=== PATIENT | male | born 1935 | race Hispanic/Latino ===

== ENCOUNTER → 2017-09-16 | Day surgery (SDC) | payer MEDICARE, MEDICAID ==
[~2017-09-16] MED LIST: AMLODIPINE-BEN1 EAC2 PO; ASPIR-LOW81 MG PO; CEFAZOLIN SOD 1 GM VIAL ONE; DEXAMETHASONE SOD PHOS INJ 4 MG/ML VIAL ONE; DOXYCYCLINE HY100 M3 PO; EPHEDRINE SULFATE INJ 50 MG/10 ML SYR ONE; FENOFIBRATE145 MG PO; FENTANYL CITRATE/PF 100MCG/2 ML INJ ONE; FINASTERIDE5 MG PO; FUROSEMIDE20 MG PO; GABAPENTIN300 MG PO; HUMALOG100 UNITS/ SQ; HYDRALAZINE HCL25 MG PO; INSULIN SC; IOPAMIDOL 300MG/ML 50ML INFUS..BTL IV ONE; KLOR-CON 1010 MEQ PO; LIDOCAINE HCL 2% LOCAL INJ 5 ML SDV VIAL INJ ONE; LOSARTAN POTAS100 MG PO; LOSARTAN-HCTZ1 EAC1 PO; ONDANSETRON HCL INJ 2 MG/ML VIAL ONE; PLAVIX75 MG PO; PROPOFOL IV EMULSION 10 MG/ML 20 ML VIAL ONE; SEVOFLURANE INHAL SOLN 250 ML PEN BTL ONE; SIMVASTATIN20 MG PO; TAMSULOSIN HCL0.4 MG PO; TRILIPIX135 MG PO; ULTRAM 50MG50 MG PO
[2017-09-16 09:31] LABS: BASOPHILS # (AUTO) 0.1 (0.0-0.1); BASOPHILS % 0.6 % (0.0-1.0); EOSINOPHILS # (AUTO) 0.3 (0.0-0.4); EOSINOPHILS % 2.8 % (0.0-6.0); HEMOGLOBIN 14.2 g/dL (14.0-18.0); LYMPHOCYTES # (AUTO) 2.1 (1.0-3.2); LYMPHOCYTES % 23.8 % (18.0-39.1); MEAN CORPUSCULAR HEMOGLOBIN 28.9 pg (28-32); MEAN CORPUSCULAR HGB CONC 32.3 g/dL (31-35); MEAN CORPUSCULAR VOLUME 89.6 fL (81-99); MONOCYTES # (AUTO) 0.6 (0.2-0.8); MONOCYTES % 6.3 % (4.4-11.3); NEUTROPHILS # (AUTO) 5.8 (2.1-6.9); NEUTROPHILS % 65.9 % (38.7-80.0); PLATELET COUNT 194 x10e3/uL (140-360); RED BLOOD COUNT 4.91 x10e6/uL (4.3-5.7); RED CELL DISTRIBUTION WIDTH 14.5 % (11.7-14.4)
[2017-09-16 09:46] LABS: ANION GAP 16.8 mmol/L (8-16); CREATININE, SERUM 1.35 mg/dL (0.72-1.25); POTASSIUM 4.8 mmol/L (3.5-5.1)
--- NOTE | 2017-09-16 17:20 | Operative Report ---
DATE OF PROCEDURE: September 16, 2017 PREOPERATIVE DIAGNOSES: 1. Urethral stricture. 2. Urinary incontinence. 3. Severely contracted bladder. 4. Hematuria. POSTOPERATIVE DIAGNOSES: 1. Urethral stricture. 2. Urinary incontinence. 3. Severely contracted bladder. 4. Hematuria. 5. Severe urethral stricture, [place] of the urethra and contracted bladder with very small volume. OPERATIONS PERFORMED: 1. Retrograde urethrogram under fluoroscopic control. 2. Cystogram. 3. Urethral dilation. 4. Cystoscopy and placement of Cortez. BOAT REPAIRER: None. ANESTHESIA: General. CLINICAL INDICATION NOTE: This is a 81-year-old patient that has urinary incontinence and significant frequency of urination. The patient was noticed in the past to have a very large prostate. Patient was brought for assessment. A stricture was seen in cystoscopy in the office. DESCRIPTION OF PROCEDURE AND FINDINGS: After proper level of anesthesia was achieved, the patient was placed in lithotomy position and prepped and draped in sterile fashion. Urethra inspected. Retrograde urethrogram was done, demonstrating stricture and quite a long urethra up to the bladder. Following this, a cystogram was done. Following the x-ray, a cystoscopy was done. The scope could not reach the bladder due to the long prostate. Therefore, a wire was kept in place and urethra was dilated to 28-Kyrgyz. The flexible cystoscopy was then done. It was possible to identify a urethral mo[place]own which appeared to be old and under the prostate. The bladder itself was very small capacity. The guidewire was kept in place and a 22, 10-mL Cortez was inserted and inflated with 15 mL of water. The Cortez was connected to a drainage bag. Patient was discharged to home after recovering in recovery room. He will be followed as outpatient. Job#: [id number] EV
== END | disposition home or self-care (01) ==
LOC: OR 07:51
PROVIDERS: ATTEND Urology
DX: N35.9 Urethral stricture, unspecified (principal); N36.5 Urethral false passage; R32 Unspecified urinary incontinence; N32.89 Other specified disorders of bladder; I10 Essential (primary) hypertension; I25.810 Atherosclerosis of coronary artery bypass graft(s) without angina pectoris; I25.2 Old myocardial infarction; E11.9 Type 2 diabetes mellitus without complications; E78.5 Hyperlipidemia, unspecified; Z79.82 Long term (current) use of aspirin; Z79.02 Long term (current) use of antithrombotics/antiplatelets; Z79.4 Long term (current) use of insulin; Z95.1 Presence of aortocoronary bypass graft; Z86.73 Personal history of transient ischemic attack (TIA), and cerebral infarction without residual deficits
CPT/HCPCS: 36415; 52281; 74450; 80048; 82948; 85025; 93005; C1758; J0690; J1100; J2001; J2405; Q9967

== ENCOUNTER → 2017-12-09 | Outpatient (CLI) | payer MEDICARE ==
[~2017-12-09] MED LIST changes: +BASAGLAR KWIKPEN SQ; +BELLADONNA/OPIUM 60 MG SUPP PR ONE; -CEFAZOLIN SOD 1 GM VIAL ONE; +CEFAZOLIN SOD 2 GM/D5W 50ML 50 ML IV ONE; -DEXAMETHASONE SOD PHOS INJ 4 MG/ML VIAL ONE; +DOXYCYCLINE HY100 MG PO; -EPHEDRINE SULFATE INJ 50 MG/10 ML SYR ONE; -FENTANYL CITRATE/PF 100MCG/2 ML INJ ONE; -IOPAMIDOL 300MG/ML 50ML INFUS..BTL IV ONE; +IOPAMIDOL 610MG/1ML 300 MG/ML VIAL IV ONE; -LIDOCAINE HCL 2% LOCAL INJ 5 ML SDV VIAL INJ ONE; +LINZESS PO; +MYRBETRIQ25 MG PO; +NOVOLOG MI100 UNIT/1; +NOVOLOG MI100 UNIT/1 SQ; -ONDANSETRON HCL INJ 2 MG/ML VIAL ONE; -PROPOFOL IV EMULSION 10 MG/ML 20 ML VIAL ONE; -SEVOFLURANE INHAL SOLN 250 ML PEN BTL ONE; +ULTRACET TABLE1 EACH PO; +VESICARE5 MG PO
--- OUTSIDE RECORDS SUMMARY | 2017-12-09 10:02 | XMS REPORT ---
Author Author [facility] Address Unknown Phone Unavailable Care Team Providers Care Cisco Consultant Name Role Phone Unavailable Unavailable Payers Payer Name Policy Type Policy Number Effective Date Expiration Date Problems This patient has no known problems. Allergies, Adverse Reactions, Alerts Allergy Name Allergy Type Status Severity Reaction(s) Onset Date Inactive Date Treating Clinician Comments No Known Allergies DA Active U 2017-08-17 00:00:00 Medications This patient has no known medications.
[2017-12-09 10:56] LABS: BASOPHILS % 0.5 % (0.0-1.0); EOSINOPHILS # (AUTO) 0.2 (0.0-0.4); EOSINOPHILS % 3.1 % (0.0-6.0); HEMATOCRIT 43.1 % (38.2-49.6); HEMOGLOBIN 13.8 g/dL (14.0-18.0); LYMPHOCYTES # (AUTO) 1.7 (1.0-3.2); LYMPHOCYTES % 22.8 % (18.0-39.1); MEAN CORPUSCULAR HEMOGLOBIN 29.1 pg (28-32); MEAN CORPUSCULAR VOLUME 90.7 fL (81-99); MONOCYTES # (AUTO) 0.4 (0.2-0.8); MONOCYTES % 5.9 % (4.4-11.3); NEUTROPHILS # (AUTO) 4.9 (2.1-6.9); PLATELET COUNT 217 x10e3/uL (140-360); RED BLOOD COUNT 4.75 x10e6/uL (4.3-5.7); RED CELL DISTRIBUTION WIDTH 14.7 % (11.7-14.4)
[2017-12-09 11:21] LABS: ANION GAP 13.9 mmol/L (8-16); CALCIUM 9.9 mg/dL (8.4-10.2); CREATININE, SERUM 1.75 mg/dL (0.72-1.25); POTASSIUM 3.9 mmol/L (3.5-5.1)
--- NOTE | 2017-12-09 12:06 | Diagnostic Imaging Report ---
EXAMINATION: CHEST 2 VIEWS INDICATION: Preop for gastric surgery. COMPARISON: None FINDINGS: TUBES and LINES: Sternal wires are seen LUNGS: Lungs are well inflated. Lungs are clear. There is no evidence of pneumonia or pulmonary edema. PLEURA: No pleural effusion or pneumothorax. Nonspecific elevation of the left hemidiaphragm. HEART AND MEDIASTINUM: The heart is enlarged. The pulmonary vasculature is within normal limits. BONES AND SOFT TISSUES: No acute osseous lesion. Soft tissues are unremarkable. UPPER ABDOMEN: No free air under the diaphragm. IMPRESSION: Cardiomegaly without consolidative pneumonia, pleural effusion or pneumothorax. Signed by: Dr. Tuan Pritchett M.D. on 12/09/2017 12:03 PM
== END ==
LOC: RAD 10:00 → OR 10:00 → EDSTATUS 12:00
PROVIDERS: ATTEND Urology
DX: Z01.818 Encounter for other preprocedural examination (principal); Z53.8 Procedure and treatment not carried out for other reasons; N40.1 Benign prostatic hyperplasia with lower urinary tract symptoms
CPT/HCPCS: 36415; 71046; 80048; 82948; 85025; J0690

== ENCOUNTER 2017-12-23 08:46 | Inpatient (IN) | payer MEDICARE ==
[~2017-12-23] VITALS: Ht 172.7 cm; Wt 132.2 kg
[~2017-12-23 08:46] MED LIST changes: -BELLADONNA/OPIUM 60 MG SUPP PR ONE; -CEFAZOLIN SOD 2 GM/D5W 50ML 50 ML IV ONE; -IOPAMIDOL 610MG/1ML 300 MG/ML VIAL IV ONE
[2017-12-23] MEDS ORDERED: CEFAZOLIN SOD 2 GM/D5W 50ML 50 ML IV ONE (09:32)
[2017-12-23 10:00] LABS: BASOPHILS # (AUTO) 0.1 (0.0-0.1); BASOPHILS % 0.6 % (0.0-1.0); EOSINOPHILS # (AUTO) 0.3 (0.0-0.4); EOSINOPHILS % 2.8 % (0.0-6.0); HEMATOCRIT 44.8 % (38.2-49.6); HEMOGLOBIN 14.6 g/dL (14.0-18.0); LYMPHOCYTES # (AUTO) 2.1 (1.0-3.2); LYMPHOCYTES % 22.2 % (18.0-39.1); MEAN CORPUSCULAR HEMOGLOBIN 29.1 pg (28-32); MEAN CORPUSCULAR HGB CONC 32.6 g/dL (31-35); MEAN CORPUSCULAR VOLUME 89.4 fL (81-99); MONOCYTES # (AUTO) 0.6 (0.2-0.8); MONOCYTES % 5.7 % (4.4-11.3); NEUTROPHILS # (AUTO) 6.5 (2.1-6.9); NEUTROPHILS % 67.8 % (38.7-80.0); PLATELET COUNT 239 x10e3/uL (140-360); RED BLOOD COUNT 5.01 x10e6/uL (4.3-5.7); RED CELL DISTRIBUTION WIDTH 14.6 % (11.7-14.4)
[2017-12-23] MEDS ORDERED: BELLADONNA/OPIUM 60 MG SUPP PR ONE (10:05)
[2017-12-23] MEDS ORDERED: IOPAMIDOL 610MG/1ML 300 MG/ML VIAL IV ONE (10:06)
[2017-12-23 10:18] LABS: CREATININE, SERUM 1.43 mg/dL (0.72-1.25)
--- NOTE | 2017-12-23 10:19 | Diagnostic Imaging Report ---
PROCEDURE: Frontal and lateral views of the chest. COMPARISON: None. INDICATIONS: PRE OPERATIVE CHEST X-RAY FINDINGS: Lines/tubes: None. Lungs: The lungs are well inflated. There is no evidence of consolidation or pulmonary edema. Pleura: There is no pleural effusion or pneumothorax. Eventration of the left hemidiaphragm. Heart and mediastinum: Enlarged cardiac silhouette. Minimal central venous congestion. Bones: No acute bony abnormality. Degenerative changes in the thoracic spine. Midline sternotomy wires. IMPRESSION: 1. enlarged cardiac silhouette. Minimal central venous congestion. No consolidation or effusion. Cale Garner M.D. Dictated by: Cale Garner M.D. on 12/23/2017 at 10:28 Electronically approved by: Cale Garner M.D. on 12/23/2017 at 10:28
--- NOTE | 2017-12-23 13:05 | NUR ---
REC'D PT FROM PACU VIA STRETCHER; PT ABLE TO ASSIST WITH TRANSFER WITHOUT DIFFICULTY.
[2017-12-23 13:20] VITALS: BP 166/77
[2017-12-23 14:09] VITALS: BP 166/77
[2017-12-23] MEDS ORDERED: FUROSEMIDE 20 MG TAB PO SCH (14:15)
[2017-12-23] MEDS ORDERED: NON-FORMULARY MEDICATION (Insuln Asp Prt/Insulin Aspart (Novolog Mix 70-30 Flexpen Syrn) 2 SQ SCH (14:15)
[2017-12-23] MEDS ORDERED: TRAMADOL HCL 50 MG TAB PO SCH (14:15)
--- NOTE | 2017-12-23 14:30 | NUR ---
Patient received from PACU. Respirations even and unlabored, no distress noted at this time. Family at bedside. Bed locked and in low position and call light within reach.
[2017-12-23] MEDS: HYDRALAZINE HCL 25 MG TAB PO SCH ×2 (16:00→21:00)
[2017-12-23] MEDS: FUROSEMIDE 20 MG TAB PO SCH (16:00)
[2017-12-23 16:53] VITALS: BP 140/73
[2017-12-23] MEDS: INSULIN ASPART 70/30 100 UNITS/ML VIAL SC SCH (17:27)
[2017-12-23] MEDS ORDERED: FENTANYL CITRATE/PF 100MCG/2 ML INJ ONE (19:23)
[2017-12-23] MEDS ORDERED: MIDAZOLAM HCL 2 MG/2 ML VIAL ONE (19:23)
[2017-12-23] MEDS ORDERED: ONDANSETRON HCL INJ 2 MG/ML VIAL ONE (19:48)
[2017-12-23] MEDS ORDERED: EPHEDRINE SULFATE INJ 50 MG/10 ML SYR ONE (19:48)
[2017-12-23] MEDS ORDERED: LIDOCAINE HCL 2% LOCAL INJ 5 ML SDV VIAL INJ ONE (19:48)
[2017-12-23] MEDS ORDERED: PROPOFOL IV EMULSION 10 MG/ML 20 ML VIAL ONE (19:48)
[2017-12-23] MEDS ORDERED: DEXAMETHASONE SOD PHOS INJ 4 MG/ML VIAL ONE (19:48)
[2017-12-23] MEDS ORDERED: SEVOFLURANE INHAL SOLN 250 ML PEN BTL ONE (19:48)
[2017-12-23 20:00] VITALS: BP 143/64
--- NOTE | 2017-12-23 20:20 | Operative Report ---
DATE OF PROCEDURE: December 23, 2017 SERVICE: Urology. PREOPERATIVE DIAGNOSES 1. BPH with obstruction. 2. Microhematuria. 3. Obesity. POSTOPERATIVE DIAGNOSES 1. BPH with obstruction. 2. Microhematuria. 3. Obesity. 4. in the prostatic urethra and obstructing prostate. OPERATIONS PERFORMED 1. Cystoscopy and bilateral retrograde pyelograms under fluoroscopic control. This was done with different instruments with assessment of microhematuria. 2. Interpretation of x-ray, radiologist not present. 3. Supervision of fluoroscopy, radiologist not present. 4. Transurethral resection of the prostate. ELECTROMECHANICAL ASSEMBLY TECHNICIAN: None. ANESTHESIA: General. CLINICAL INDICATION NOTE: This is an 82-year-old patient that has symptoms of prostatism in remote past. He had some procedures on the prostate. He was assessed in the office. Prostatic area regrowth of tissue was blocking mostly on the right side. He had also undermining on the bladder neck within the prostatic urethra. Patient is significantly obese and the prostate is very high rising. Patient was brought for assessment of the upper tracts and resection of obstructing tissue. Procedure was discussed with the patient. Potential benefits and complications discussed, explained, and accepted. DESCRIPTION OF PROCEDURE AND FINDINGS: After proper level of anesthesia was achieved, the patient was placed in lithotomy position, prepped and draped in usual sterile fashion. Urethra inspected and distal urethra is unremarkable. In the prostatic urethra, there are some with some undermining off the bladder neck. Prostatic tissue significantly blocking the outlet. Bladder is quite trabeculated. Bilateral retrograde pyelograms were done under fluoroscopic control. No intrinsic lesions were identified on either side. The drainage was prompt. Following this, the resectoscope was inserted and systematic resection with a plasma instrument was done. All the blocking tissue was resected. All the prostatic chips were removed and sent to pathology. Any visible bleeding points were carefully coagulated. Following this, a 22-Portuguese 3-way Cortez catheter with 30-mL balloon was inserted after checking significant and good flow of water upon compression of the bladder. The Cortez was connected to continuous irrigation with normal saline and was transferred in satisfactory condition to recovery room. After that, bladder looked quite small. A B and O suppository was placed. Job#: [id number] CQ
[2017-12-23] MEDS: GABAPENTIN 300 MG CAP PO SCH (20:21)
[2017-12-23] MEDS: SOLIFENACIN SUCCINATE 5 MG TAB PO SCH (20:21)
[2017-12-23] MEDS: SIMVASTATIN 20 MG TAB PO SCH (20:21)
[2017-12-24] VITALS (7 sets, daily range): BP systolic 142–159; BP diastolic 63–72
[2017-12-24] MEDS: NON-FORMULARY MEDICATION (Mirabegron (Myrbetriq) 25 MG) PO SCH (08:29)
[2017-12-24] MEDS: FINASTERIDE 5 MG TAB PO SCH (08:49)
[2017-12-24] MEDS: TAMSULOSIN HCL 0.4 MG CAP PO SCH (08:49)
[2017-12-24] MEDS: HYDRALAZINE HCL 25 MG TAB PO SCH ×3 (08:50→20:54)
[2017-12-24] MEDS: FENOFIBRATE 145 MG TAB PO SCH (08:50)
[2017-12-24] MEDS: POTASSIUM CHLORIDE 10MEQ EA PO SCH (08:50)
[2017-12-24] MEDS ORDERED: NON-FORMULARY MEDICATION (Potassium Chloride (Klor-Con 10) 10 MEQ) PO SCH (09:00)
[2017-12-24] MEDS: INSULIN ASPART 70/30 100 UNITS/ML VIAL SC SCH ×2 (12:04→17:12)
--- NOTE | 2017-12-24 12:31 | NUR ---
EDUCATED ABOUT CASTANEDA, SIGNED, FILED IN CHART, WITH COPY LEFT WITH FAMILY AT BEDSIDE. SPOKE WITH PATIENT AND FAMILY ABOUT TRANSITION OF CARE AND PREFORMED BRIEF SOCIAL ASSESSMENT TO FIND; MALE LIVES IN OWN HOME WITH ASHOK [phone]. HAS A WALKER HE USES AT HOME. PCP IS [facility]. ALERT AND ORIENTED X 4. GET PT AND HOME HEALTH ALREADY. SPEAKS DANISH AND WITH ASSISTANCE FROM NURSE RICKY WAS ABLE TO COMPLETE ASSESSMENT. PLAN IS TO RETURN HOME WITH NO BARRIERS TO DISCHARGE.
[2017-12-24] MEDS ORDERED: CEFAZOLIN SOD 1 GM in WATER STERILE 10ML VIAL 10 ML IV ONE (12:45)
[2017-12-24] MEDS ORDERED: CEFAZOLIN SOD 1 GM VIAL IV SCH (14:00)
--- NOTE | 2017-12-24 16:09 | NUR ---
patients daughter provided education on hicks catheter and changing from bedside bag to leg bag, return demonstration provided and verbalized understanding
--- NOTE | 2017-12-24 16:09 | Discharge Summary ---
PRIMARY CARE PHYSICIAN: Dr. Cale Camara. CONSULTANTS: Dr. Samreen Sierra. FINAL DIAGNOSES: 1. Status post transurethral resection of the prostate and medical aftercare of transurethral resection of the prostate. 2. Enlarged prostate with recurrent urinary retention. SUMMARY: [id number] male with now status post TURP procedures. The patient is stable. He has a Cortez catheter in place. No gross hematuria. He has been cleared for discharge home today. He will follow up with Dr. Sierra next week for Cortez care. The patient will go home with pain medication and antibiotics. The patient is otherwise stable. Discharged home today. Resume home medication. Job#: [id number] EV
--- NOTE | 2017-12-24 16:15 | NUR ---
informed dr keith of elevated temperature 101.7, new orders received and hold discharge
[2017-12-24] MEDS: TRAMADOL HCL 50 MG TAB PO PRN (16:57)
[2017-12-24] MEDS: ACETAMINOPHEN 325 MG TAB PO PRN (16:57)
[2017-12-24 17:01] LABS: ANION GAP 19.2 mmol/L (8-16); CALCIUM 9.5 mg/dL (8.4-10.2); CREATININE, SERUM 1.74 mg/dL (0.72-1.25); POTASSIUM 4.2 mmol/L (3.5-5.1)
[2017-12-24] MEDS: CEFTRIAXONE SOD 1 GM VIAL IV SCH (17:11)
[2017-12-24 17:56] LABS: BASOPHILS % 0.4 % (0.0-1.0); EOSINOPHILS # (AUTO) 0.1 (0.0-0.4); EOSINOPHILS % 1.1 % (0.0-6.0); HEMATOCRIT 43.5 % (38.2-49.6); HEMOGLOBIN 13.8 g/dL (14.0-18.0); LYMPHOCYTES # (AUTO) 0.9 (1.0-3.2); LYMPHOCYTES % 7.7 % (18.0-39.1); MEAN CORPUSCULAR HEMOGLOBIN 29.2 pg (28-32); MEAN CORPUSCULAR HGB CONC 31.7 g/dL (31-35); MONOCYTES # (AUTO) 0.9 (0.2-0.8); MONOCYTES % 7.7 % (4.4-11.3); NEUTROPHILS % 82.4 % (38.7-80.0); PLATELET COUNT 187 x10e3/uL (140-360); RED BLOOD COUNT 4.73 x10e6/uL (4.3-5.7); RED CELL DISTRIBUTION WIDTH 14.8 % (11.7-14.4)
--- NOTE | 2017-12-24 19:20 | NUR ---
Report received and walking rounds complete. Pt resting in bed watching tv and in no apparent distress. at bedside. Cortez in place. All safety measures ensured, bed alarm on, and pt call gonzalez near. Pt encouraged to use call gonzalez for assistance.
[2017-12-24] MEDS: SIMVASTATIN 20 MG TAB PO SCH (20:54)
[2017-12-24] MEDS: SOLIFENACIN SUCCINATE 5 MG TAB PO SCH (20:54)
[2017-12-24] MEDS: GABAPENTIN 300 MG CAP PO SCH (20:54)
[2017-12-24] MEDS: ACETAMINOPHEN/CODEINE 300MG - 30MG TAB PO PRN (21:12)
--- NOTE | 2017-12-24 21:13 | NUR ---
Pt temp 99.3. Pt asymptomatic. Pt c/o pain as well. Tylenol #3 given. Pt 02 sats 91%, pt put on 2L NC. Will continue to monitor pt and recheck vitals.
--- NOTE | 2017-12-24 21:15 | NUR ---
UA collected and sent to lab
[2017-12-24 21:20] LABS: CLARITY,URINE CLOUDY (CLEAR); COLOR,URINE AMBER (YELLOW); KETONES,URINE TRACE (NEGATIVE); LEUKOCYTE ESTERASE ,URINE 1+ (NEGATIVE); NITRITE,URINE POSITIVE (NEGATIVE); PROTEIN,URINE DIPSTICK 2+ (NEGATIVE); URINE UROBILINOGEN 1 mg/dL (0.2 - 1)
[2017-12-24 21:21] LABS: BILIRUBIN,URINE 1+ (NEGATIVE)
[2017-12-24 21:26] LABS: AMORPHOUS SEDIMENT,URINE MODERATE (FEW); BACTERIA,URINE MANY /HPF; RBC,URINE 21-50 /HPF (0-5)
[2017-12-25] VITALS (8 sets, daily range): BP systolic 135–180; BP diastolic 60–84
[2017-12-25] MEDS: ACETAMINOPHEN 325 MG TAB PO PRN (00:20)
--- NOTE | 2017-12-25 00:21 | NUR ---
Vitals taken, pt temp 101.1. Pt asymptomatic and no complaints. Tylenol 650mg given.
--- NOTE | 2017-12-25 00:29 | NUR ---
Pt transferred to room 210. Pt A&O, no complaints and in no apparent distress.
--- NOTE | 2017-12-25 00:36 | NUR ---
PT ARRIVING TO UNIT VIA HOSPITAL BED, AT BEDSIDE, PT ALERT, NO DISTRESS NOTED, NO NEEDS VOICED
[2017-12-25] MEDS: CEFTRIAXONE SOD 1 GM VIAL IV SCH ×2 (03:09→16:53)
[2017-12-25] MEDS: HYDRALAZINE HCL 25 MG TAB PO SCH ×3 (05:29→20:22)
--- NOTE | 2017-12-25 05:31 | NUR ---
PT RESTING IN BED ALERT AND ORIENTED,NO DISTRESS NOTED, AT BEDSIDE, O2 NC WORN, CALL LIGHT IN REACH, INSTRUCTED TO CALL WITH NEEDS
[2017-12-25] MEDS: POTASSIUM CHLORIDE 10MEQ EA PO SCH (08:18)
[2017-12-25] MEDS: TAMSULOSIN HCL 0.4 MG CAP PO SCH (08:18)
[2017-12-25] MEDS: FINASTERIDE 5 MG TAB PO SCH (08:19)
[2017-12-25] MEDS: FENOFIBRATE 145 MG TAB PO SCH (08:19)
[2017-12-25] MEDS: NON-FORMULARY MEDICATION (Mirabegron (Myrbetriq) 25 MG) PO SCH (08:29)
[2017-12-25] MEDS: ACETAMINOPHEN/CODEINE 300MG - 30MG TAB PO PRN ×2 (08:43→20:00)
--- NOTE | 2017-12-25 11:57 | NUR ---
Pt changed to inpatient status. IMM letter delivered and explained to pt with CONNIE Lynn. Pt verbalized understanding. Signed copy placed in chart. Croatian copy given to pt.
[2017-12-25] MEDS: INSULIN ASPART 70/30 100 UNITS/ML VIAL SC SCH ×2 (12:03→17:12)
--- NOTE | 2017-12-25 19:10 | NUR ---
REPORT RECEIVED FROM OFF GOING NURSE, PT RESTING IN BED ALERT AND ORIENTED, NO DISTRESS NOTED, DENIES NEEDS, INDWELLING PARRISH IN PLACE AND DRAINING TO BEDSIDE DRAINAGE, CONDON COLORED URINE PREVIOUSLY NOTED, CALL LIGHT IN REACH, AT BEDSIDE, INSTRUCTED TO CALL WITH NEEDS, BED LOCKED AND LOW
--- NOTE | 2017-12-25 20:00 | NUR ---
PRN GIVEN FOR PAIN
[2017-12-25] MEDS: GABAPENTIN 300 MG CAP PO SCH (20:26)
[2017-12-25] MEDS: SIMVASTATIN 20 MG TAB PO SCH (20:26)
[2017-12-25] MEDS: SOLIFENACIN SUCCINATE 5 MG TAB PO SCH (20:26)
[2017-12-25] MEDS: TRAMADOL HCL 50 MG TAB PO PRN (23:22)
--- NOTE | 2017-12-25 23:23 | NUR ---
PRN GIVEN FOR PAIN
[2017-12-26] VITALS (8 sets, daily range): BP systolic 153–193; BP diastolic 67–84
[2017-12-26] MEDS: ACETAMINOPHEN/CODEINE 300MG - 30MG TAB PO PRN ×3 (04:15→18:22)
--- NOTE | 2017-12-26 04:15 | NUR ---
PRN GIVEN FOR PAIN
[2017-12-26] MEDS: CEFTRIAXONE SOD 1 GM VIAL IV SCH ×2 (04:30→16:29)
[2017-12-26 04:52] LABS: BASOPHILS # (AUTO) 0.1 (0.0-0.1); BASOPHILS % 0.6 % (0.0-1.0); EOSINOPHILS # (AUTO) 0.3 (0.0-0.4); EOSINOPHILS % 2.8 % (0.0-6.0); HEMOGLOBIN 13.1 g/dL (14.0-18.0); LYMPHOCYTES # (AUTO) 1.4 (1.0-3.2); LYMPHOCYTES % 13.4 % (18.0-39.1); MEAN CORPUSCULAR HEMOGLOBIN 28.9 pg (28-32); MEAN CORPUSCULAR VOLUME 90.3 fL (81-99); MONOCYTES # (AUTO) 0.8 (0.2-0.8); MONOCYTES % 7.4 % (4.4-11.3); NEUTROPHILS % 75.2 % (38.7-80.0); PLATELET COUNT 176 x10e3/uL (140-360); RED BLOOD COUNT 4.54 x10e6/uL (4.3-5.7); RED CELL DISTRIBUTION WIDTH 14.6 % (11.7-14.4)
--- NOTE | 2017-12-26 04:59 | NUR ---
CRITICAL LABS CALLED IN, ORDERS NOTED FOR PLTs, MADE AWARE OF PTs HBG OF 8.0 ON 12/25
[2017-12-26 05:12] LABS: ANION GAP 16.1 mmol/L (8-16); CALCIUM 8.7 mg/dL (8.4-10.2); CREATININE, SERUM 1.54 mg/dL (0.72-1.25); POTASSIUM 4.1 mmol/L (3.5-5.1)
[2017-12-26] MEDS: HYDRALAZINE HCL 25 MG TAB PO SCH ×3 (06:06→20:42)
[2017-12-26] MEDS: NON-FORMULARY MEDICATION (Mirabegron (Myrbetriq) 25 MG) PO SCH (09:00)
[2017-12-26] MEDS: FINASTERIDE 5 MG TAB PO SCH (09:20)
[2017-12-26] MEDS: TAMSULOSIN HCL 0.4 MG CAP PO SCH (09:20)
[2017-12-26] MEDS: FENOFIBRATE 145 MG TAB PO SCH (09:20)
[2017-12-26] MEDS: POTASSIUM CHLORIDE 10MEQ EA PO SCH (09:21)
[2017-12-26] MEDS: INSULIN ASPART 70/30 100 UNITS/ML VIAL SC SCH ×2 (13:05→16:46)
[2017-12-26] MEDS: FUROSEMIDE 20 MG TAB PO SCH (16:29)
[2017-12-26] MEDS: SIMVASTATIN 20 MG TAB PO SCH (20:42)
[2017-12-26] MEDS: SOLIFENACIN SUCCINATE 5 MG TAB PO SCH (20:42)
[2017-12-26] MEDS: GABAPENTIN 300 MG CAP PO SCH (20:42)
[2017-12-27] VITALS (8 sets, daily range): BP systolic 132–194; BP diastolic 66–87
[2017-12-27] MEDS: TRAMADOL HCL 50 MG TAB PO PRN ×2 (00:27→21:32)
[2017-12-27] MEDS: ACETAMINOPHEN/CODEINE 300MG - 30MG TAB PO PRN ×2 (04:01→09:30)
[2017-12-27] MEDS: CEFTRIAXONE SOD 1 GM VIAL IV SCH (04:59)
--- NOTE | 2017-12-27 07:13 | NUR ---
REPORT GIVEN TO ONCOMING NURSE,WALKING ROUNDS MADE.PT RESTING IN BED WITH NO S/S OF DISTRESS.
--- NOTE | 2017-12-27 08:01 | NUR ---
Mateusz Sharif to report critical labs . Lab called critical labs for ESBL both positive in urine and blood.
--- NOTE | 2017-12-27 08:15 | NUR ---
Paged Dr. Samuel regarding ESBL growth in urine and blood cultures, and also new orders received from Dr. Sierra. Waiting oriental medicine practitioner back
[2017-12-27] MEDS ORDERED: PIPERACILLIN/TAZO 2.25 GM 50 ML IV SCH (08:45)
[2017-12-27] MEDS: NON-FORMULARY MEDICATION (Mirabegron (Myrbetriq) 25 MG) PO SCH (09:00)
[2017-12-27] MEDS: HYDRALAZINE HCL 25 MG TAB PO SCH ×3 (09:29→21:18)
[2017-12-27] MEDS: POTASSIUM CHLORIDE 10MEQ EA PO SCH (09:30)
[2017-12-27] MEDS: FENOFIBRATE 145 MG TAB PO SCH (09:30)
[2017-12-27] MEDS: FINASTERIDE 5 MG TAB PO SCH (09:30)
[2017-12-27] MEDS: TAMSULOSIN HCL 0.4 MG CAP PO SCH (09:30)
[2017-12-27] MEDS: MEROPENEM 500MG 500 MG in SODIUM CHLORIDE 0.9% 50ML 50 ML IV SCH ×3 (10:43→21:18)
--- NOTE | 2017-12-27 10:52 | NUR ---
Received order for SNF eval. Spoke to pt with CONNIE Huang. Informed pt that MD wants him to go to SNF for IV abx. He agrees to [facility]. Signed choice letter placed in chart. Copy to pt. Called and spoke with Maria Del Carmen with admissions at [facility]. She will send someone over to [facility] clinicals.
--- NOTE | 2017-12-27 11:23 | NUR ---
Kacey is here to [facility] for [facility].
[2017-12-27] MEDS: INSULIN ASPART 70/30 100 UNITS/ML VIAL SC SCH ×3 (12:00→17:00)
--- NOTE | 2017-12-27 12:25 | NUR ---
Pt has been accepted for [facility] [place] [address] [place] [address] Armani Stoddard Admin Benny Antoine Rm 223 RTF and PASSR in white envelope at nurses station. Copy of PASSR in chart. CONNIE Angeles notified.
--- NOTE | 2017-12-27 12:45 | NUR ---
Cortez removed per MD order. PICC line team is here to insert line. Patient has been educated on serial urine collection.
--- NOTE | 2017-12-27 13:43 | Diagnostic Imaging Report ---
EXAMINATION: CHEST XRAY LINE PLACEMENT INDICATION: Status post PICC. COMPARISON: None FINDINGS: TUBES and LINES: Interval placement of right sided PICC terminating at the expected position of the lower SVC. Sternal wires are seen LUNGS: Moderate lung volumes. There is no evidence of pneumonia or pulmonary edema. Non-specific mild elevation of the left hemidiaphragm is again noted. PLEURA: No pleural effusion or pneumothorax. HEART AND MEDIASTINUM: The heart is enlarged. The pulmonary vasculature is within normal limits. BONES AND SOFT TISSUES: No acute osseous lesion. Soft tissues are unremarkable. UPPER ABDOMEN: No free air under the diaphragm. IMPRESSION: Right sided PICC terminates at the expected location of the lower SVC in satisfactory position. No evidence of pneumothorax. Cardiomegaly. Signed by: Dr. Damian Davenport MD on 12/27/2017 1:40 PM
[2017-12-27] MEDS ORDERED: MEROPENEM 500MG 500 MG in SODIUM CHLORIDE 0.9% 50ML 50 ML IV SCH (14:00)
--- NOTE | 2017-12-27 17:01 | NUR ---
Cm spoke to pt and his at bedside with CONNIE Huang. IMM letter delivered and explained to pt and his . They verbalized understanding. Signed copy placed in chart. Filipino copy given to pt. Spoke to them regarding transfer to snf. answered all questions. CM information on board for any further questions/concerns.
--- NOTE | 2017-12-27 18:44 | Consultation ---
DATE OF CONSULTATION: December 27, 2017 REASON FOR CONSULTATION: UTI, sepsis with E. coli ESBL. HISTORY OF PRESENT ILLNESS: Patient who is an 82-year-old male who has history of benign prostate hypertrophy, history of obesity comes in with fever and chills. The patient was not able to urinate when he first came. The patient underwent cystoscopy, bilateral retrograde pyelogram under fluoroscopic control. The patient had the procedure on December 23. The patient afterwards was discharged home. He is coming back now with fever and chills. Blood cultures from December 24 showing Klebsiella ESBL. Urine cultures are showing the same. Patient is currently on meropenem. Infectious disease was consulted today to make recommendation in terms of antibiotic. Patient has a PICC line placement. He is currently up in the chair, comfortable. MEDICATION: He is currently on Flomax, Proscar, Tricor, Ultram, Zocor and meropenem. ALLERGIES: NKA. SOCIAL HISTORY: There is no smoking, no drug abuse or alcohol abuse. FAMILY HISTORY: Unremarkable. REVIEW OF SYSTEMS: GENERAL: At present time the patient is sitting up in chair, comfortable. He denies any review of systems. HEENT: Negative. PULMONARY: Negative. CARDIAC: Negative. : Negative. SKIN: There is no rash. PHYSICAL EXAMINATION: GENERAL: Alert, oriented, does not seem to be in any acute distress. VITAL SIGNS: Stable, currently afebrile. HEENT: Not icteric. NECK: Supple. CHEST: Clear bilaterally. HEART: S1 and S2, no murmur. ABDOMEN: Soft. Obese. No tenderness. No hepatosplenomegaly. EXTREMITIES: No edema. SKIN: No rash. IMPRESSION: Sepsis with E. coli ESBL, urinary tract infection, sepsis with Klebsiella pneumonia, ESBL. RECOMMENDATIONS: I agree with meropenem 500 IV q.6 h. Obtain blood cultures. will see if he can do outpatient IV antibiotic. Will check blood cultures. Weekly CBC, weekly chem panel. Will follow with you. Job#: [id number]
--- NOTE | 2017-12-27 19:15 | NUR ---
Received patient awake on bed, with at the bedside. Patient is for serial urine collection, patient verbalized understanding to call after void. Call light within reached, side rails up, bed locked and in low position. Will continue to monitor
[2017-12-27] MEDS: GABAPENTIN 300 MG CAP PO SCH (21:18)
[2017-12-27] MEDS: SOLIFENACIN SUCCINATE 5 MG TAB PO SCH (21:18)
[2017-12-27] MEDS: SIMVASTATIN 20 MG TAB PO SCH (21:18)
[2017-12-27] MEDS ORDERED: SODIUM CHLORIDE 0.9% 250ML 250 ML ONE (21:24)
[2017-12-28] VITALS (7 sets, daily range): BP systolic 142–181; BP diastolic 75–91
[2017-12-28] MEDS: ACETAMINOPHEN/CODEINE 300MG - 30MG TAB PO PRN ×3 (00:08→21:24)
[2017-12-28 04:52] LABS: BASOPHILS # (AUTO) 0.1 (0.0-0.1); BASOPHILS % 0.6 % (0.0-1.0); EOSINOPHILS # (AUTO) 0.5 (0.0-0.4); EOSINOPHILS % 5.3 % (0.0-6.0); HEMOGLOBIN 12.9 g/dL (14.0-18.0); LYMPHOCYTES # (AUTO) 1.7 (1.0-3.2); LYMPHOCYTES % 19.5 % (18.0-39.1); MEAN CORPUSCULAR HEMOGLOBIN 28.5 pg (28-32); MEAN CORPUSCULAR HGB CONC 31.5 g/dL (31-35); MEAN CORPUSCULAR VOLUME 90.7 fL (81-99); MONOCYTES # (AUTO) 0.6 (0.2-0.8); MONOCYTES % 7.3 % (4.4-11.3); NEUTROPHILS # (AUTO) 5.6 (2.1-6.9); NEUTROPHILS % 66.6 % (38.7-80.0); PLATELET COUNT 200 x10e3/uL (140-360); RED BLOOD COUNT 4.52 x10e6/uL (4.3-5.7); RED CELL DISTRIBUTION WIDTH 14.3 % (11.7-14.4)
[2017-12-28 04:58] LABS: ANION GAP 14.3 mmol/L (8-16); CALCIUM 9.9 mg/dL (8.4-10.2); CREATININE, SERUM 1.56 mg/dL (0.72-1.25); POTASSIUM 4.3 mmol/L (3.5-5.1)
[2017-12-28] MEDS: MEROPENEM 500MG 500 MG in SODIUM CHLORIDE 0.9% 50ML 50 ML IV SCH ×3 (05:25→21:24)
[2017-12-28] MEDS: NON-FORMULARY MEDICATION (Mirabegron (Myrbetriq) 25 MG) PO SCH (09:00)
[2017-12-28] MEDS: TAMSULOSIN HCL 0.4 MG CAP PO SCH (09:21)
[2017-12-28] MEDS: FINASTERIDE 5 MG TAB PO SCH (09:21)
[2017-12-28] MEDS: FENOFIBRATE 145 MG TAB PO SCH (09:21)
[2017-12-28] MEDS: HYDRALAZINE HCL 25 MG TAB PO SCH ×3 (09:21→21:24)
--- NOTE | 2017-12-28 10:14 | NUR ---
RM spoke with CONNIE Angeles. She states Dr. Samuel does not want to transfer pt to SNF yet due to hematuria overnight.
[2017-12-28] MEDS: INSULIN ASPART 70/30 100 UNITS/ML VIAL SC SCH ×2 (12:30→17:30)
[2017-12-28] MEDS ORDERED: MEROPENEM 500 MG VIAL ONE (15:00)
[2017-12-28] MEDS: TRAMADOL HCL 50 MG TAB PO PRN (17:57)
--- NOTE | 2017-12-28 19:20 | NUR ---
Received patient awake on bed, not in distress, still having hematuria as noted in the serial urine samples, Dr. Sierra is aware. Will continue to monitor accordingly
[2017-12-28] MEDS: SOLIFENACIN SUCCINATE 5 MG TAB PO SCH (21:24)
[2017-12-28] MEDS: GABAPENTIN 300 MG CAP PO SCH (21:24)
[2017-12-28] MEDS: SIMVASTATIN 20 MG TAB PO SCH (21:24)
[2017-12-29 02:00] VITALS: BP 153/73
[2017-12-29 06:03] VITALS: BP 156/79
[2017-12-29] MEDS: MEROPENEM 500MG 500 MG in SODIUM CHLORIDE 0.9% 50ML 50 ML IV SCH ×2 (06:04→13:53)
[2017-12-29] MEDS: ACETAMINOPHEN/CODEINE 300MG - 30MG TAB PO PRN (06:04)
--- NOTE | 2017-12-29 07:10 | NUR ---
RCD PT AT BED PT IS ALERT AND ORIENTED ASSESSMENT DONE PT RESTING ON BED NO SIGNS OF ANY DISTRESS NOTED IV PATENT BED LOW AND LOCKED CALL LIGHT IN REACH
[2017-12-29 08:36] VITALS: BP 145/68
[2017-12-29] MEDS: FENOFIBRATE 145 MG TAB PO SCH (09:00)
[2017-12-29] MEDS: NON-FORMULARY MEDICATION (Mirabegron (Myrbetriq) 25 MG) PO SCH (09:00)
[2017-12-29] MEDS: HYDRALAZINE HCL 25 MG TAB PO SCH ×2 (09:00→15:00)
[2017-12-29] MEDS: FINASTERIDE 5 MG TAB PO SCH (09:00)
[2017-12-29] MEDS: TAMSULOSIN HCL 0.4 MG CAP PO SCH (09:00)
--- NOTE | 2017-12-29 09:30 | NUR ---
Spoke with Dr. Samuel. He will discharge pt to long-term today. [facility] [place] [address] [place], [place] [id number] Accepting physician Dr. Armani Stoddard Admin Benny Antoine Rm 225 RTF and PASRR in white envelope at nurses station. CONNIE Pinto informed of bed.
--- NOTE | 2017-12-29 09:38 | NUR ---
A/C TO ALEJANDRA PT CAN GO HOME PAGED DR KENNEY TO GET DISCHARGE APPROVAL
--- NOTE | 2017-12-29 09:45 | NUR ---
TALKED TO DR KENNEY OFFICE HE SAID HE COMING TO MAKE ROUNDS
[2017-12-29] MEDS: INSULIN ASPART 70/30 100 UNITS/ML VIAL SC SCH ×2 (12:00→16:53)
[2017-12-29 12:31] VITALS: BP 146/87
--- NOTE | 2017-12-29 13:30 | NUR ---
REPORT GIVEN TO MARY REYES
--- NOTE | 2017-12-29 16:15 | Discharge Summary ---
CONSULTANTS 1. Dr. Samreen Sierra. 2. Dr. Alexandre Hernandez. FINAL DIAGNOSES 1. Extended-spectrum beta-lactamase bacteremia/sepsis. 2. Status post transurethral resection of the prostate and cystoscopy. The procedure was done on December 23, 2017. SUMMARY: [id number] male with enlarged prostate, urinary retention, gross hematuria, prostatitis. Patient is status post a TURP procedure. Patient subsequently developed fever and subsequent bacteremia with ESBL infection. Patient now is on meropenem. The patient is stable. He is comfortable. The patient will be discharged to [facility] to continue with his IV antibiotics under the recommendation of Dr. Alexandre Hernandez. His urinalysis is clean. No gross hematuria at this time. The patient will discharge to [facility] and will continue with the antibiotic treatment and follow up with Dr. Sierra as an outpatient. Job#: [id number] EV
[2017-12-29 16:45] VITALS: BP 150/75
--- NOTE | 2017-12-29 16:53 | NUR ---
PT DISCHARGED TO [facility] IN SAFE CONDITION
== END 2017-12-29 17:12 | DRG 854 ==
LOC: OR 08:46 → PACU V 12:31 → IMCU 13:07 → OBSVTOIN 12-24 18:48 → MED/SURG2 12-25 00:49
PROVIDERS: ADMIT Internal Medicine; ATTEND Internal Medicine
PROC: BT141ZZ Fluoroscopy of Kidneys, Ureters and Bladder using Low Osmolar Contrast (ICD-10-PCS; 2017-12-23)
PROC: 02HV33Z Insertion of Infusion Device into Superior Vena Cava, Percutaneous Approach (ICD-10-PCS; principal; 2017-12-23 10:30)
PROC: 0VT08ZZ Resection of Prostate, Via Natural or Artificial Opening Endoscopic (ICD-10-PCS; 2017-12-23 10:30)
DX: A41.51 Sepsis due to Escherichia coli [E. coli] (principal); N13.8 Other obstructive and reflux uropathy; N17.9 Acute kidney failure, unspecified; Z68.43 Body mass index [BMI] 50.0-59.9, adult; A41.89 Other specified sepsis; N40.1 Benign prostatic hyperplasia with lower urinary tract symptoms; Z16.12 Extended spectrum beta lactamase (ESBL) resistance; E66.9 Obesity, unspecified; R33.8 Other retention of urine; I12.9 Hypertensive chronic kidney disease with stage 1 through stage 4 chronic kidney disease, or unspecified chronic kidney disease; N18.2 Chronic kidney disease, stage 2 (mild); R31.29 Other microscopic hematuria; E11.22 Type 2 diabetes mellitus with diabetic chronic kidney disease; R65.20 Severe sepsis without septic shock
CPT/HCPCS: 36415; 36569; 71045; 71046; 74420; 80048; 81001; 82948; 85025; 87040; 87071; 87086; 87186; 87205; 88305; G0378; J0690; J0696; J1100; J1815; J2001; J2185; J2250; J2405; J7050

== ENCOUNTER 2020-02-10 03:02 | Inpatient (IN) | payer MEDICARE ==
[~2020-02-10] VITALS: Ht 172.7 cm; Wt 132.0 kg
[~2020-02-10 03:02] MED LIST changes: +FINASTERIDE5 MG PEG; -FINASTERIDE5 MG PO
[2020-02-10] MEDS ORDERED: LABETALOL HCL100 MG PEG (03:44)
[2020-02-10] MEDS ORDERED: DIOVAN80 MG PEG (03:44)
[2020-02-10] MEDS ORDERED: NOVOLIN N100 UNIT/1 SC (03:44)
[2020-02-10] MEDS ORDERED: ATORVASTATIN CA40 MG PEG (03:44)
[2020-02-10] MEDS ORDERED: HEPARIN SO5000 UNIT/ SC (03:44)
[2020-02-10] MEDS ORDERED: AMLODIPINE BESYL5 MG PEG (03:44)
[2020-02-10] MEDS ORDERED: FAMOTIDINE20 MG PEG (03:44)
[2020-02-10] MEDS ORDERED: ASPIRIN81 MG PEG (03:44)
[2020-02-10] MEDS ORDERED: PROMOD946 ML PEG (03:44)
[2020-02-10] MEDS ORDERED: FLOMAX0.4 MG PEG (03:44)
[2020-02-10] MEDS ORDERED: ZOSYN 3.373.375 GM/1 IV (03:44)
[2020-02-10 04:16] LABS: BASOPHILS % 0.4 % (0.0-1.0); EOSINOPHILS # (AUTO) 0.4 (0.0-0.4); EOSINOPHILS % 4.2 % (0.0-6.0); HEMATOCRIT 42.8 % (38.2-49.6); LYMPHOCYTES # (AUTO) 1.2 (1.0-3.2); LYMPHOCYTES % 11.2 % (18.0-39.1); MEAN CORPUSCULAR HEMOGLOBIN 29.1 pg (28-32); MEAN CORPUSCULAR HGB CONC 30.4 g/dL (31-35); MEAN CORPUSCULAR VOLUME 95.7 fL (81-99); MONOCYTES # (AUTO) 0.4 (0.2-0.8); MONOCYTES % 4.2 % (4.4-11.3); NEUTROPHILS # (AUTO) 8.1 (2.1-6.9); NEUTROPHILS % 79.4 % (38.7-80.0); PLATELET COUNT 210 x10e3/uL (140-360); RED BLOOD COUNT 4.47 x10e6/uL (4.3-5.7); RED CELL DISTRIBUTION WIDTH 15.2 % (11.7-14.4)
[2020-02-10 04:32] LABS: ALANINE AMINOTRANSFERASE 30 IU/L (0-55); ALBUMIN 2.6 g/dL (3.5-5.0); ALBUMIN/GLOBULIN RATIO 0.5 (0.8-2.0); ALKALINE PHOSPHATASE 90 IU/L (40-150); ANION GAP 15.5 mmol/L (8-16); BLOOD UREA NITROGEN 34 mg/dL (7-26); BUN/CREATININE RATIO 31 (6-25); CARBON DIOXIDE 27 mmol/L (22-29); CHLORIDE 111 mmol/L (98-107); CREATINE KINASE 108 IU/L (30-200); CREATININE, SERUM 1.09 mg/dL (0.72-1.25); EST GLOMERULAR FILTRATION RATE > 60 ML/MIN (60-); GLUCOSE 387 mg/dL (74-118); POTASSIUM 4.5 mmol/L (3.5-5.1); SODIUM 149 mmol/L (136-145)
[2020-02-10] MEDS ORDERED: ONDANSETRON HCL INJ 2MG/ML 2ML 2 MG/ML VIAL IV PRN (05:15)
[2020-02-10] MEDS ORDERED: DEXTROSE 50% SYRINGE 50 ML IV PRN (05:15)
[2020-02-10] MEDS ORDERED: SODIUM CHLORIDE 0.9% 1000ML 1,000 ML IV ONE (05:15)
[2020-02-10] MEDS: INSULIN REGULAR, HUMAN 100 UNIT/1 ML 3ML VIAL SQ SCH ×4 (07:30→22:00)
[2020-02-10] MEDS ORDERED: HYDRALAZINE HCL 20 MG/ML VIAL IV PRN (08:00)
[2020-02-10] MEDS ORDERED: ACETAMINOPHEN 325 MG TAB PO PRN (08:00)
[2020-02-10] MEDS ORDERED: ASPIRIN 325 MG TAB PO ONE (08:00)
[2020-02-10 08:45] VITALS: BP 136/87
[2020-02-10] MEDS ORDERED: ALBUTEROL/IPRATROPIUM 3 ML NEB NEB PRN (09:30)
[2020-02-10] MEDS ORDERED: ACETAMINOPHEN 325 MG TAB PEG PRN (09:45)
[2020-02-10] MEDS ORDERED: GADOBENATE DIMEGLUMINE 1 ML IV ONE (10:41)
[2020-02-10] MEDS ORDERED: LABETALOL HCL 100 MG TAB PEG SCH (11:00)
[2020-02-10 12:30] VITALS: BP 136/87
[2020-02-10] MEDS ORDERED: VANCOMYCIN 1GM/NS 250 ML 250 ML IV ONE (13:15)
[2020-02-10] MEDS ORDERED: HEPARIN SOD (PORCINE) 5,000 UNIT/ML VIAL SC SCH (14:00)
[2020-02-10] MEDS: MEROPENEM 1GM 100 ML IV SCH ×2 (14:08→22:34)
[2020-02-10] MEDS: FINASTERIDE 5 MG TAB PEG SCH (15:00)
[2020-02-10] MEDS: TAMSULOSIN HCL 0.4 MG CAP PEG SCH (15:00)
[2020-02-10] MEDS: AMLODIPINE BESYLATE 5 MG TAB PEG SCH (15:00)
[2020-02-10 16:45] VITALS: BP 144/51
[2020-02-10] MEDS: FAMOTIDINE 20 MG/2 ML VIAL IV SCH (18:06)
[2020-02-10 20:57] VITALS: BP 120/55
[2020-02-10 22:00] VITALS: BP 120/55
[2020-02-10] MEDS: ATORVASTATIN 40 MG TAB PEG SCH (22:00)
[2020-02-10 22:21] LABS: CLARITY,URINE HAZY (CLEAR); COLOR,URINE YELLOW (YELLOW); LEUKOCYTE ESTERASE ,URINE TRACE (NEGATIVE); NITRITE,URINE NEGATIVE (NEGATIVE); PROTEIN,URINE DIPSTICK >=300 (NEGATIVE)
[2020-02-10 22:22] LABS: KETONES,URINE NEGATIVE (NEGATIVE); URINE UROBILINOGEN 0.2 mg/dL (0.2 - 1)
[2020-02-10 22:23] LABS: AMORPHOUS SEDIMENT,URINE FEW (FEW); BACTERIA,URINE MODERATE /HPF; EPITHELIAL CELLS,URINE FEW /LPF; MUCUS,URINE FEW (RARE); RBC,URINE 21-50 /HPF (0-5); YEAST,URINE FEW
[2020-02-11] VITALS (7 sets, daily range): BP systolic 109–159; BP diastolic 46–88
[2020-02-11] MEDS: MEROPENEM 1GM 100 ML IV SCH ×3 (05:23→21:35)
[2020-02-11 06:23] LABS: BASOPHILS # (AUTO) 0.1 (0.0-0.1); BASOPHILS % 0.6 % (0.0-1.0); EOSINOPHILS # (AUTO) 0.5 (0.0-0.4); HEMATOCRIT 39.9 % (38.2-49.6); HEMOGLOBIN 12.1 g/dL (14.0-18.0); LYMPHOCYTES # (AUTO) 1.2 (1.0-3.2); MEAN CORPUSCULAR HEMOGLOBIN 29.7 pg (28-32); MEAN CORPUSCULAR HGB CONC 30.3 g/dL (31-35); MEAN CORPUSCULAR VOLUME 97.8 fL (81-99); MONOCYTES # (AUTO) 0.4 (0.2-0.8); PLATELET COUNT 184 x10e3/uL (140-360); RED BLOOD COUNT 4.08 x10e6/uL (4.3-5.7); RED CELL DISTRIBUTION WIDTH 15.6 % (11.7-14.4)
[2020-02-11 06:57] LABS: ALBUMIN 2.3 g/dL (3.5-5.0); ALBUMIN/GLOBULIN RATIO 0.5 (0.8-2.0); ANION GAP 11.3 mmol/L (8-16); CALCIUM 10.4 mg/dL (8.4-10.2); CREATININE, SERUM 1.16 mg/dL (0.72-1.25); POTASSIUM 4.3 mmol/L (3.5-5.1)
[2020-02-11 07:40] LABS: CHOL/HDL RATIO 4.4 (3.9-4.7)
[2020-02-11 07:59] LABS: THYROID STIMULATING HORMONE 0.001 uIU/mL (0.350-4.940)
[2020-02-11] MEDS: INSULIN REGULAR, HUMAN 100 UNIT/1 ML 3ML VIAL SQ SCH ×4 (08:30→21:06)
[2020-02-11] MEDS ORDERED: VALSARTAN 80 MG TAB PEG SCH (09:00)
[2020-02-11] MEDS: AMLODIPINE BESYLATE 5 MG TAB PEG SCH (09:00)
[2020-02-11] MEDS: TAMSULOSIN HCL 0.4 MG CAP PEG SCH (09:00)
[2020-02-11] MEDS: FAMOTIDINE 20 MG/2 ML VIAL IV SCH ×2 (09:00→17:36)
[2020-02-11] MEDS ORDERED: ASPIRIN 81 MG CHEW TAB PEG SCH (09:00)
[2020-02-11] MEDS: FINASTERIDE 5 MG TAB PEG SCH (09:00)
[2020-02-11] MEDS ORDERED: SODIUM CHLORIDE 0.45% 1,000 ML IV ONE (13:30)
[2020-02-11] MEDS ORDERED: VANCOMYCIN 1GM/NS 250 ML 250 ML IV ONE ×2 (14:00→17:30)
[2020-02-11] MEDS: ATORVASTATIN 40 MG TAB PEG SCH (21:05)
[2020-02-12] VITALS (9 sets, daily range): BP systolic 129–156; BP diastolic 58–84
[2020-02-12 06:08] LABS: BASOPHILS # (AUTO) 0.1 (0.0-0.1); BASOPHILS % 0.5 % (0.0-1.0); EOSINOPHILS # (AUTO) 0.6 (0.0-0.4); EOSINOPHILS % 6.7 % (0.0-6.0); HEMATOCRIT 39.4 % (38.2-49.6); HEMOGLOBIN 11.8 g/dL (14.0-18.0); LYMPHOCYTES # (AUTO) 1.4 (1.0-3.2); LYMPHOCYTES % 15.6 % (18.0-39.1); MEAN CORPUSCULAR HEMOGLOBIN 29.6 pg (28-32); MEAN CORPUSCULAR HGB CONC 29.9 g/dL (31-35); MEAN CORPUSCULAR VOLUME 98.7 fL (81-99); MONOCYTES # (AUTO) 0.4 (0.2-0.8); MONOCYTES % 4.5 % (4.4-11.3); NEUTROPHILS # (AUTO) 6.6 (2.1-6.9); NEUTROPHILS % 71.8 % (38.7-80.0); PLATELET COUNT 164 x10e3/uL (140-360); RED BLOOD COUNT 3.99 x10e6/uL (4.3-5.7); RED CELL DISTRIBUTION WIDTH 15.6 % (11.7-14.4)
[2020-02-12] MEDS: MEROPENEM 1GM 100 ML IV SCH (06:09)
[2020-02-12 06:34] LABS: ALBUMIN 2.3 g/dL (3.5-5.0); ALBUMIN/GLOBULIN RATIO 0.5 (0.8-2.0); ANION GAP 11.5 mmol/L (8-16); CALCIUM 10.2 mg/dL (8.4-10.2); CREATININE, SERUM 1.17 mg/dL (0.72-1.25); POTASSIUM 4.5 mmol/L (3.5-5.1)
[2020-02-12] MEDS: INSULIN REGULAR, HUMAN 100 UNIT/1 ML 3ML VIAL SQ SCH ×4 (08:30→20:10)
[2020-02-12] MEDS: FAMOTIDINE 20 MG/2 ML VIAL IV SCH ×2 (08:30→16:27)
[2020-02-12] MEDS: FINASTERIDE 5 MG TAB PEG SCH (09:27)
[2020-02-12] MEDS: TAMSULOSIN HCL 0.4 MG CAP PEG SCH (09:27)
[2020-02-12] MEDS: AMLODIPINE BESYLATE 5 MG TAB PEG SCH ×2 (09:27→20:10)
[2020-02-12] MEDS ORDERED: CEFTRIAXONE SOD 1 GM VIAL IV SCH (11:30)
[2020-02-12] MEDS: CEFTRIAXONE SOD 1 GM/NS 50 ML 50 ML IV SCH (11:58)
[2020-02-12] MEDS ORDERED: SODIUM CHLORIDE 0.45% 1,000 ML IV ONE (12:00)
[2020-02-12] MEDS: VANCOMYCIN 1GM/NS 250 ML 250 ML IV SCH (13:00)
[2020-02-12] MEDS: ATORVASTATIN 40 MG TAB PEG SCH (20:10)
[2020-02-13] VITALS (7 sets, daily range): BP systolic 122–156; BP diastolic 54–93
[2020-02-13] MEDS: FAMOTIDINE 20 MG/2 ML VIAL IV SCH ×2 (08:30→16:37)
[2020-02-13] MEDS: INSULIN REGULAR, HUMAN 100 UNIT/1 ML 3ML VIAL SQ SCH ×4 (08:30→21:47)
[2020-02-13] MEDS: FINASTERIDE 5 MG TAB PEG SCH (10:00)
[2020-02-13] MEDS: AMLODIPINE BESYLATE 5 MG TAB PEG SCH ×2 (10:00→21:47)
[2020-02-13] MEDS: TAMSULOSIN HCL 0.4 MG CAP PEG SCH (10:00)
[2020-02-13] MEDS: COLLAGENASE 5 GM TUBE TOP SCH (10:00)
[2020-02-13] MEDS: CEFTRIAXONE SOD 1 GM/NS 50 ML 50 ML IV SCH (11:50)
[2020-02-13] MEDS ORDERED: POTASSIUM CHLORIDE 10MEQ EA PO ONE (12:00)
[2020-02-13] MEDS: VANCOMYCIN 1GM/NS 250 ML 250 ML IV SCH (13:00)
[2020-02-13] MEDS: ATORVASTATIN 40 MG TAB PEG SCH (21:47)
[2020-02-14] VITALS (9 sets, daily range): BP systolic 91–151; BP diastolic 52–90
[2020-02-14] MEDS: VANCOMYCIN 1GM/NS 250 ML 250 ML IV SCH ×2 (02:00→13:06)
[2020-02-14 05:12] LABS: BASOPHILS % 0.4 % (0.0-1.0); EOSINOPHILS # (AUTO) 0.6 (0.0-0.4); EOSINOPHILS % 6.6 % (0.0-6.0); HEMATOCRIT 38.6 % (38.2-49.6); HEMOGLOBIN 11.8 g/dL (14.0-18.0); LYMPHOCYTES # (AUTO) 1.6 (1.0-3.2); LYMPHOCYTES % 16.6 % (18.0-39.1); MEAN CORPUSCULAR HEMOGLOBIN 29.1 pg (28-32); MEAN CORPUSCULAR HGB CONC 30.6 g/dL (31-35); MEAN CORPUSCULAR VOLUME 95.1 fL (81-99); MONOCYTES # (AUTO) 0.5 (0.2-0.8); NEUTROPHILS # (AUTO) 6.8 (2.1-6.9); NEUTROPHILS % 70.3 % (38.7-80.0); PLATELET COUNT 134 x10e3/uL (140-360); RED BLOOD COUNT 4.06 x10e6/uL (4.3-5.7); RED CELL DISTRIBUTION WIDTH 15.3 % (11.7-14.4)
[2020-02-14 05:43] LABS: ALANINE AMINOTRANSFERASE 23 IU/L (0-55); ALBUMIN 2.4 g/dL (3.5-5.0); ALBUMIN/GLOBULIN RATIO 0.6 (0.8-2.0); ALKALINE PHOSPHATASE 89 IU/L (40-150); ANION GAP 11.3 mmol/L (8-16); BLOOD UREA NITROGEN 34 mg/dL (7-26); BUN/CREATININE RATIO 31 (6-25); CALCIUM 9.5 mg/dL (8.4-10.2); CARBON DIOXIDE 32 mmol/L (22-29); CHLORIDE 110 mmol/L (98-107); CREATININE, SERUM 1.09 mg/dL (0.72-1.25); EST GLOMERULAR FILTRATION RATE > 60 ML/MIN (60-); GLUCOSE 189 mg/dL (74-118); POTASSIUM 4.3 mmol/L (3.5-5.1); SODIUM 149 mmol/L (136-145)
[2020-02-14] MEDS: INSULIN REGULAR, HUMAN 100 UNIT/1 ML 3ML VIAL SQ SCH ×4 (07:30→21:00)
[2020-02-14] MEDS: FINASTERIDE 5 MG TAB PEG SCH (09:29)
[2020-02-14] MEDS: TAMSULOSIN HCL 0.4 MG CAP PEG SCH (09:29)
[2020-02-14] MEDS: VALSARTAN 80 MG TAB PEG SCH (09:29)
[2020-02-14] MEDS: FAMOTIDINE 20 MG/2 ML VIAL IV SCH ×2 (09:29→16:29)
[2020-02-14] MEDS: AMLODIPINE BESYLATE 5 MG TAB PEG SCH ×2 (09:29→21:00)
[2020-02-14] MEDS: COLLAGENASE 5 GM TUBE TOP SCH (09:30)
[2020-02-14] MEDS ORDERED: SODIUM CHLORIDE 0.9% 250ML 250 ML ONE (11:47)
[2020-02-14] MEDS: CEFTRIAXONE SOD 1 GM/NS 50 ML 50 ML IV SCH (12:11)
[2020-02-14] MEDS: ATORVASTATIN 40 MG TAB PEG SCH (23:24)
[2020-02-15] VITALS (8 sets, daily range): BP systolic 118–154; BP diastolic 58–74
[2020-02-15] MEDS: VANCOMYCIN 1GM/NS 250 ML 250 ML IV SCH ×2 (01:59→12:44)
[2020-02-15] MEDS: FAMOTIDINE 20 MG/2 ML VIAL IV SCH ×2 (08:24→17:03)
[2020-02-15] MEDS: VALSARTAN 80 MG TAB PEG SCH (08:25)
[2020-02-15] MEDS: AMLODIPINE BESYLATE 5 MG TAB PEG SCH ×2 (08:25→21:54)
[2020-02-15] MEDS: COLLAGENASE 5 GM TUBE TOP SCH (08:25)
[2020-02-15] MEDS: FINASTERIDE 5 MG TAB PEG SCH (08:25)
[2020-02-15] MEDS: TAMSULOSIN HCL 0.4 MG CAP PEG SCH (08:25)
[2020-02-15] MEDS: INSULIN REGULAR, HUMAN 100 UNIT/1 ML 3ML VIAL SQ SCH ×4 (08:29→21:55)
[2020-02-15] MEDS: CEFTRIAXONE SOD 1 GM/NS 50 ML 50 ML IV SCH (10:56)
[2020-02-15] MEDS: ATORVASTATIN 40 MG TAB PEG SCH (21:54)
[2020-02-16] MEDS: VANCOMYCIN 1GM/NS 250 ML 250 ML IV SCH ×2 (01:16→14:26)
[2020-02-16 04:55] VITALS: BP 135/56
[2020-02-16 05:14] LABS: BASOPHILS # (AUTO) 0.1 (0.0-0.1); BASOPHILS % 0.5 % (0.0-1.0); EOSINOPHILS # (AUTO) 0.6 (0.0-0.4); EOSINOPHILS % 6.8 % (0.0-6.0); HEMATOCRIT 37.1 % (38.2-49.6); HEMOGLOBIN 11.3 g/dL (14.0-18.0); LYMPHOCYTES # (AUTO) 1.5 (1.0-3.2); MEAN CORPUSCULAR HEMOGLOBIN 29.1 pg (28-32); MEAN CORPUSCULAR HGB CONC 30.5 g/dL (31-35); MEAN CORPUSCULAR VOLUME 95.6 fL (81-99); MONOCYTES # (AUTO) 0.5 (0.2-0.8); MONOCYTES % 5.2 % (4.4-11.3); NEUTROPHILS # (AUTO) 6.4 (2.1-6.9); NEUTROPHILS % 70.1 % (38.7-80.0); PLATELET COUNT 122 x10e3/uL (140-360); RED BLOOD COUNT 3.88 x10e6/uL (4.3-5.7); RED CELL DISTRIBUTION WIDTH 15.1 % (11.7-14.4)
[2020-02-16 05:34] LABS: ALANINE AMINOTRANSFERASE 19 IU/L (0-55); ALBUMIN 2.3 g/dL (3.5-5.0); ALBUMIN/GLOBULIN RATIO 0.5 (0.8-2.0); ALKALINE PHOSPHATASE 83 IU/L (40-150); ANION GAP 12.5 mmol/L (8-16); BLOOD UREA NITROGEN 34 mg/dL (7-26); BUN/CREATININE RATIO 31 (6-25); CALCIUM 9.5 mg/dL (8.4-10.2); CARBON DIOXIDE 31 mmol/L (22-29); CHLORIDE 107 mmol/L (98-107); CREATININE, SERUM 1.08 mg/dL (0.72-1.25); EST GLOMERULAR FILTRATION RATE > 60 ML/MIN (60-); GLUCOSE 165 mg/dL (74-118); POTASSIUM 4.5 mmol/L (3.5-5.1); SODIUM 146 mmol/L (136-145)
[2020-02-16] MEDS: INSULIN REGULAR, HUMAN 100 UNIT/1 ML 3ML VIAL SQ SCH ×4 (08:00→21:00)
[2020-02-16 08:14] VITALS: BP 158/67
[2020-02-16 09:04] VITALS: BP 158/67
[2020-02-16] MEDS: FAMOTIDINE 20 MG/2 ML VIAL IV SCH ×2 (09:36→16:25)
[2020-02-16] MEDS: FINASTERIDE 5 MG TAB PEG SCH (09:37)
[2020-02-16] MEDS: COLLAGENASE 5 GM TUBE TOP SCH (09:37)
[2020-02-16] MEDS: VALSARTAN 80 MG TAB PEG SCH (09:37)
[2020-02-16] MEDS: TAMSULOSIN HCL 0.4 MG CAP PEG SCH (09:37)
[2020-02-16] MEDS: AMLODIPINE BESYLATE 5 MG TAB PEG SCH (09:37)
[2020-02-16 11:31] VITALS: BP 141/84
[2020-02-16] MEDS: CEFTRIAXONE SOD 1 GM/NS 50 ML 50 ML IV SCH (12:09)
[2020-02-16 15:34] VITALS: BP 99/80
[2020-02-16 20:00] VITALS: BP 175/58
[2020-02-16] MEDS ORDERED: FUROSEMIDE INJ 10 MG/ML 4 ML VIAL IV ONE (21:00)
[2020-02-16] MEDS: ATORVASTATIN 40 MG TAB PEG SCH (21:00)
[2020-02-17] VITALS (8 sets, daily range): BP systolic 110–151; BP diastolic 50–70
[2020-02-17] MEDS: VANCOMYCIN 750MG/NS 150ML IVPB 150 ML IV SCH ×2 (01:00→13:17)
[2020-02-17 05:14] LABS: BASOPHILS # (AUTO) 0.1 (0.0-0.1); BASOPHILS % 0.5 % (0.0-1.0); EOSINOPHILS # (AUTO) 0.4 (0.0-0.4); EOSINOPHILS % 4.1 % (0.0-6.0); HEMATOCRIT 38.5 % (38.2-49.6); HEMOGLOBIN 11.8 g/dL (14.0-18.0); LYMPHOCYTES # (AUTO) 1.2 (1.0-3.2); LYMPHOCYTES % 10.7 % (18.0-39.1); MEAN CORPUSCULAR HGB CONC 30.6 g/dL (31-35); MEAN CORPUSCULAR VOLUME 94.6 fL (81-99); MONOCYTES # (AUTO) 0.5 (0.2-0.8); MONOCYTES % 4.5 % (4.4-11.3); NEUTROPHILS # (AUTO) 8.6 (2.1-6.9); NEUTROPHILS % 79.2 % (38.7-80.0); PLATELET COUNT 126 x10e3/uL (140-360); RED BLOOD COUNT 4.07 x10e6/uL (4.3-5.7)
[2020-02-17 05:33] LABS: ALANINE AMINOTRANSFERASE 18 IU/L (0-55); ALBUMIN 2.4 g/dL (3.5-5.0); ALBUMIN/GLOBULIN RATIO 0.5 (0.8-2.0); ALKALINE PHOSPHATASE 89 IU/L (40-150); ANION GAP 12.5 mmol/L (8-16); BLOOD UREA NITROGEN 35 mg/dL (7-26); BUN/CREATININE RATIO 32 (6-25); CALCIUM 9.5 mg/dL (8.4-10.2); CARBON DIOXIDE 32 mmol/L (22-29); CHLORIDE 104 mmol/L (98-107); CREATININE, SERUM 1.08 mg/dL (0.72-1.25); EST GLOMERULAR FILTRATION RATE > 60 ML/MIN (60-); GLUCOSE 236 mg/dL (74-118); MAGNESIUM 2.2 MG/DL (1.3-2.1); PHOSPHORUS 3.1 MG/DL (2.3-4.7); POTASSIUM 4.5 mmol/L (3.5-5.1); SODIUM 144 mmol/L (136-145)
[2020-02-17] MEDS: FAMOTIDINE 20 MG/2 ML VIAL IV SCH ×2 (08:10→16:41)
[2020-02-17] MEDS: VALSARTAN 80 MG TAB PEG SCH (08:10)
[2020-02-17] MEDS: TAMSULOSIN HCL 0.4 MG CAP PEG SCH (08:11)
[2020-02-17] MEDS: COLLAGENASE 5 GM TUBE TOP SCH (08:11)
[2020-02-17] MEDS: AMLODIPINE BESYLATE 5 MG TAB PEG SCH (08:11)
[2020-02-17] MEDS: FINASTERIDE 5 MG TAB PEG SCH (08:11)
[2020-02-17] MEDS: INSULIN REGULAR, HUMAN 100 UNIT/1 ML 3ML VIAL SQ SCH ×4 (08:21→21:00)
[2020-02-17] MEDS: CEFTRIAXONE SOD 1 GM/NS 50 ML 50 ML IV SCH (13:17)
[2020-02-17] MEDS ORDERED: FUROSEMIDE INJ 10 MG/ML 4 ML VIAL IV NR (14:15)
[2020-02-17] MEDS: ATORVASTATIN 40 MG TAB PEG SCH (21:00)
[2020-02-18] VITALS: BP 145/52
[2020-02-18] MEDS: VANCOMYCIN 750MG/NS 150ML IVPB 150 ML IV SCH (01:09)
[2020-02-18 08:20] VITALS: BP 160/63
[2020-02-18] MEDS: INSULIN REGULAR, HUMAN 100 UNIT/1 ML 3ML VIAL SQ SCH ×4 (09:41→22:17)
[2020-02-18] MEDS: FINASTERIDE 5 MG TAB PEG SCH (09:42)
[2020-02-18] MEDS: COLLAGENASE 5 GM TUBE TOP SCH (09:42)
[2020-02-18] MEDS: VALSARTAN 80 MG TAB PEG SCH (09:42)
[2020-02-18] MEDS: FAMOTIDINE 20 MG/2 ML VIAL IV SCH ×2 (09:42→16:55)
[2020-02-18] MEDS: AMLODIPINE BESYLATE 5 MG TAB PEG SCH (09:42)
[2020-02-18] MEDS: TAMSULOSIN HCL 0.4 MG CAP PEG SCH (09:42)
[2020-02-18] MEDS: CEFTRIAXONE SOD 1 GM/NS 50 ML 50 ML IV SCH (11:58)
[2020-02-18 12:00] VITALS: BP 158/67
[2020-02-18 12:12] VITALS: BP 158/67
[2020-02-18] MEDS ORDERED: ACETAMINOPHEN325 M1 PEG (12:13)
[2020-02-18] MEDS ORDERED: LABETALOL HCL100 MG PEG (12:13)
[2020-02-18] MEDS ORDERED: NORVASC5 MG PEG (12:13)
[2020-02-18] MEDS ORDERED: DIOVAN80 MG PEG (12:13)
[2020-02-18] MEDS ORDERED: HUMULIN R100 UNIT/2 SQ (12:13)
[2020-02-18] MEDS ORDERED: FINASTERIDE5 MG PEG (12:13)
[2020-02-18] MEDS ORDERED: FLOMAX0.4 MG PEG (12:13)
[2020-02-18] MEDS ORDERED: Atorvastatin PEG (12:13)
[2020-02-18] MEDS ORDERED: Albuterol/Ipratropium Nebulize NEB (12:13)
[2020-02-18] MEDS ORDERED: VANCOMYCIN750 MG/151 IV ×2 (12:13→13:32)
[2020-02-18] MEDS ORDERED: NOVOLIN N100 UNIT/1 SC (12:13)
[2020-02-18] MEDS ORDERED: ONDANSETRON HCL4 MG PEG (12:14)
[2020-02-18 17:32] VITALS: BP 153/74
[2020-02-18 20:00] VITALS: BP 164/69
[2020-02-18] MEDS: ATORVASTATIN 40 MG TAB PEG SCH (21:46)
[2020-02-20] MEDS ORDERED: VANCOMYCIN 750MG/NS 150ML IVPB 150 ML IV SCH (01:00)
== END 2020-02-19 01:32 | DRG 871 ==
LOC: ER 03:30 → ERHOLD 05:10 → MED/SURG2 06:46 → OBSVTOIN 02-11 12:56
PROVIDERS: ADMIT Internal Medicine; ATTEND Internal Medicine
PROC: 02HV33Z Insertion of Infusion Device into Superior Vena Cava, Percutaneous Approach (ICD-10-PCS; principal; 2020-02-10)
PROC: B548ZZA Ultrasonography of Superior Vena Cava, Guidance (ICD-10-PCS; 2020-02-10)
DX: A41.9 Sepsis, unspecified organism (principal); J96.20 Acute and chronic respiratory failure, unspecified whether with hypoxia or hypercapnia; J69.0 Pneumonitis due to inhalation of food and vomit; I63.81 Other cerebral infarction due to occlusion or stenosis of small artery; J15.212 Pneumonia due to Methicillin resistant Staphylococcus aureus; N17.9 Acute kidney failure, unspecified; E87.0 Hyperosmolality and hypernatremia; Z68.41 Body mass index [BMI] 40.0-44.9, adult; E11.65 Type 2 diabetes mellitus with hyperglycemia; I10 Essential (primary) hypertension; Z87.440 Personal history of urinary (tract) infections; N40.0 Benign prostatic hyperplasia without lower urinary tract symptoms; E78.5 Hyperlipidemia, unspecified; E66.01 Morbid (severe) obesity due to excess calories; Z93.1 Gastrostomy status; Z93.0 Tracheostomy status; I48.0 Paroxysmal atrial fibrillation; D69.6 Thrombocytopenia, unspecified
CPT/HCPCS: 36415; 36569; 70450; 70553; 71045; 80053; 80061; 80202; 81001; 82550; 82553; 82948; 83036; 83735; 84100; 84146; 84443; 84484; 85025; 87040; 87070; 87186; 87205; 93005; 93306; 93880; 94640; 95812; 96372; 97139; 99251; 99285; G0378; J0360; J0696; J1817; J1940; J3370; J7030; J7050; U0002

== ENCOUNTER 2020-03-06 00:28 | Emergency (ER) | payer MEDICARE ==
[~2020-03-06] VITALS: Ht 172.7 cm; Wt 132.0 kg
[~2020-03-06 00:28] MED LIST changes: +ACETAMINOPHEN325 M1 PEG; +AMLODIPINE BESYL5 MG PEG; +ASPIRIN81 MG PEG; +ATORVASTATIN CA40 MG PEG; +Albuterol/Ipratropium Nebulize NEB; +Atorvastatin PEG; +DIOVAN80 MG PEG; +FAMOTIDINE20 MG PEG; +FLOMAX0.4 MG PEG; +HEPARIN SO5000 UNIT/ SC; +HUMULIN R100 UNIT/2 SQ; +LABETALOL HCL100 MG PEG; +NORVASC5 MG PEG; +NOVOLIN N100 UNIT/1 SC; +ONDANSETRON HCL4 MG PEG; +PROMOD946 ML PEG; +VANCOMYCIN750 MG/151 IV; +ZOSYN 3.373.375 GM/1 IV
[2020-03-06] MEDS ORDERED: PIPERACILLIN/TAZO 4.5 GM 100 ML IV STA (02:24)
== END 2020-03-06 04:48 | disposition home or self-care (01) ==
LOC: ER 00:37
DX: R06.00 Dyspnea, unspecified (principal); I10 Essential (primary) hypertension; E11.9 Type 2 diabetes mellitus without complications; I25.10 Atherosclerotic heart disease of native coronary artery without angina pectoris; I73.9 Peripheral vascular disease, unspecified; Z86.73 Personal history of transient ischemic attack (TIA), and cerebral infarction without residual deficits; Z93.0 Tracheostomy status; Z93.1 Gastrostomy status
CPT/HCPCS: 71045; 93005; 99284; J2543

== ENCOUNTER 2020-03-08 05:38 | Inpatient (IN) | payer MEDICARE ==
[~2020-03-08] VITALS: Ht 172.7 cm; Wt 129.3 kg
[2020-03-08] MEDS ORDERED: CEFEPIME 1GM/NS 0.9% 50 ML 50 ML IV STA (05:47)
[2020-03-08] MEDS ORDERED: VANCOMYCIN 1GM/NS 250 ML 250 ML IV STA (05:47)
[2020-03-08 06:27] LABS: BASOPHILS # (AUTO) 0.1 (0.0-0.1); BASOPHILS % 0.6 % (0.0-1.0); EOSINOPHILS # (AUTO) 0.2 (0.0-0.4); EOSINOPHILS % 1.4 % (0.0-6.0); HEMATOCRIT 31.9 % (38.2-49.6); HEMOGLOBIN 9.7 g/dL (14.0-18.0); LYMPHOCYTES # (AUTO) 0.9 (1.0-3.2); LYMPHOCYTES % 8.7 % (18.0-39.1); MEAN CORPUSCULAR HEMOGLOBIN 29.5 pg (28-32); MEAN CORPUSCULAR HGB CONC 30.4 g/dL (31-35); MONOCYTES # (AUTO) 0.5 (0.2-0.8); MONOCYTES % 4.5 % (4.4-11.3); NEUTROPHILS # (AUTO) 9.1 (2.1-6.9); NEUTROPHILS % 83.9 % (38.7-80.0); PLATELET COUNT 195 x10e3/uL (140-360); RED BLOOD COUNT 3.29 x10e6/uL (4.3-5.7); RED CELL DISTRIBUTION WIDTH 15.8 % (11.7-14.4)
[2020-03-08 06:46] LABS: ALBUMIN 2.7 g/dL (3.5-5.0); ALBUMIN/GLOBULIN RATIO 0.5 (0.8-2.0); ANION GAP 13.6 mmol/L (8-16); CALCIUM 10.1 mg/dL (8.4-10.2); CREATININE, SERUM 1.18 mg/dL (0.72-1.25)
[2020-03-08 06:56] LABS: POTASSIUM 5.6 mmol/L (3.5-5.1)
[2020-03-08 07:11] LABS: COLOR,URINE YELLOW (YELLOW)
[2020-03-08 07:12] LABS: CLARITY,URINE SL CLOUDY (CLEAR); KETONES,URINE NEGATIVE (NEGATIVE); LEUKOCYTE ESTERASE ,URINE 1+ (NEGATIVE); NITRITE,URINE NEGATIVE (NEGATIVE); PROTEIN,URINE DIPSTICK 2+ (NEGATIVE); URINE UROBILINOGEN 0.2 mg/dL (0.2 - 1)
[2020-03-08] MEDS ORDERED: VANCOMYCIN 1GM/NS 250 ML 250 ML ONE (07:17)
[2020-03-08] MEDS ORDERED: SOD POLYSTYRENE SULFONATE SUSP 15 GM/60 ML BTL PO ONE (07:30)
[2020-03-08 07:40] LABS: RBC,URINE 21-50 /HPF (0-5); WBC,URINE (MAN) >50 /HPF (0-5)
[2020-03-08 07:41] LABS: BACTERIA,URINE MANY /HPF; EPITHELIAL CELLS,URINE FEW /LPF; RENAL EPITHELIAL CELLS,URINE FEW; YEAST,URINE FEW
[2020-03-08] MEDS ORDERED: FUROSEMIDE INJ 10 MG/ML 4 ML VIAL IV NR (08:00)
[2020-03-08] MEDS ORDERED: LORAZEPAM INJ 2 MG/ML VIAL IV NR (10:15)
[2020-03-08] MEDS ORDERED: LORAZEPAM INJ 2 MG/ML VIAL ONE (10:20)
[2020-03-08] MEDS: LABETALOL HCL 100 MG TAB PEG SCH ×2 (12:00→23:45)
[2020-03-08] MEDS ORDERED: DEXTROSE 50% SYRINGE 50 ML IV PRN (12:00)
[2020-03-08] MEDS ORDERED: ACETAMINOPHEN 325 MG TAB PO PRN (12:15)
[2020-03-08] MEDS ORDERED: HYDRALAZINE HCL 20 MG/ML VIAL IV PRN (12:15)
[2020-03-08] MEDS ORDERED: ONDANSETRON HCL INJ 2MG/ML 2ML 2 MG/ML VIAL IV PRN (12:15)
[2020-03-08] MEDS ORDERED: DOXYCYCLINE HYCLATE TABLET 100 MG TAB PO SCH (13:00)
[2020-03-08] MEDS ORDERED: CEFTRIAXONE SOD 1 GM/NS 50 ML 50 ML IV SCH (13:15)
[2020-03-08] MEDS: INSULIN LISPRO 100 UNIT/1 ML 3ML VIAL SQ SCH ×3 (13:35→22:58)
[2020-03-08] MEDS: DOXYCYCLINE 100MG/NS 100ML 100 ML IV SCH (14:25)
[2020-03-08] MEDS: ALBUTEROL/IPRATROPIUM 3 ML NEB NEB SCH ×2 (14:30→20:15)
[2020-03-08 14:46] LABS: ABG HCO3 38 mmol/L (22-26); ABG PCO2 47 mmHg (35-45); ABG PH 7.51 (7.35-7.45); ABG PO2 80 mmHg (80-105); ABG TCO2 39
[2020-03-08] MEDS ORDERED: ALBUTEROL/IPRATROPIUM 3 ML NEB ONE (20:25)
[2020-03-08 20:49] LABS: CREATINE KINASE MB 6.2 ng/mL (0-5.0)
[2020-03-09] MEDS ORDERED: FUROSEMIDE INJ 10 MG/ML 4 ML VIAL ONE (00:03)
[2020-03-09] MEDS ORDERED: ATORVASTATIN 40 MG TAB ONE (00:39)
[2020-03-09] MEDS ORDERED: HEPARIN SOD (PORCINE) 5,000 UNIT/ML VIAL ONE (00:39)
[2020-03-09] MEDS: ALBUTEROL/IPRATROPIUM 3 ML NEB NEB SCH ×4 (00:40→19:10)
[2020-03-09] MEDS: ATORVASTATIN 40 MG TAB PEG SCH ×2 (00:49→21:45)
[2020-03-09] MEDS: FUROSEMIDE INJ 10 MG/ML 4 ML VIAL IV SCH ×3 (00:49→21:45)
[2020-03-09] MEDS: HEPARIN SOD (PORCINE) 5,000 UNIT/ML VIAL SC SCH ×3 (01:00→21:45)
[2020-03-09] MEDS: POTASSIUM CHLORIDE 10MEQ EA PO SCH ×3 (01:30→17:25)
[2020-03-09] MEDS ORDERED: DOXYCYCLINE 100MG/NS 100ML 100 ML IV ONE (02:28)
[2020-03-09 02:37] LABS: CREATINE KINASE MB 6.9 ng/mL (0-5.0)
[2020-03-09] MEDS: DOXYCYCLINE 100MG/NS 100ML 100 ML IV SCH ×2 (03:36→16:42)
[2020-03-09 06:27] LABS: BASOPHILS % 0.5 % (0.0-1.0); EOSINOPHILS # (AUTO) 0.1 (0.0-0.4); EOSINOPHILS % 0.9 % (0.0-6.0); HEMATOCRIT 27.6 % (38.2-49.6); HEMOGLOBIN 8.4 g/dL (14.0-18.0); LYMPHOCYTES % 11.8 % (18.0-39.1); MEAN CORPUSCULAR HEMOGLOBIN 29.5 pg (28-32); MEAN CORPUSCULAR HGB CONC 30.4 g/dL (31-35); MEAN CORPUSCULAR VOLUME 96.8 fL (81-99); MONOCYTES # (AUTO) 0.5 (0.2-0.8); MONOCYTES % 5.6 % (4.4-11.3); NEUTROPHILS # (AUTO) 6.8 (2.1-6.9); NEUTROPHILS % 80.4 % (38.7-80.0); PLATELET COUNT 187 x10e3/uL (140-360); RED BLOOD COUNT 2.85 x10e6/uL (4.3-5.7); RED CELL DISTRIBUTION WIDTH 16.2 % (11.7-14.4)
[2020-03-09] MEDS ORDERED: ALBUTEROL/IPRATROPIUM 3 ML NEB ONE (06:28)
[2020-03-09 06:57] LABS: ALBUMIN 2.3 g/dL (3.5-5.0); ALBUMIN/GLOBULIN RATIO 0.5 (0.8-2.0); ANION GAP 13.9 mmol/L (8-16); CALCIUM 9.7 mg/dL (8.4-10.2); CREATININE, SERUM 1.4 mg/dL (0.72-1.25); POTASSIUM 4.9 mmol/L (3.5-5.1)
[2020-03-09] MEDS: INSULIN LISPRO 100 UNIT/1 ML 3ML VIAL SQ SCH ×4 (08:00→21:45)
[2020-03-09] MEDS: FINASTERIDE 5 MG TAB PEG SCH (10:06)
[2020-03-09] MEDS: AMLODIPINE BESYLATE 5 MG TAB PEG SCH (10:06)
[2020-03-09] MEDS: LABETALOL HCL 200 MG TAB PEG SCH ×2 (10:07→21:45)
[2020-03-09] MEDS: TAMSULOSIN HCL 0.4 MG CAP PEG SCH (10:07)
[2020-03-09] MEDS: PANTOPRAZOLE SODIUM 40 MG SUSPDR.PKT PO SCH (10:08)
[2020-03-09] MEDS ORDERED: CEFEPIME HCL 1 GM VIAL IV SCH (13:15)
[2020-03-09] MEDS: CEFEPIME 1GM/NS 0.9% 50 ML 50 ML IV SCH (13:49)
[2020-03-09] MEDS ORDERED: PROPOFOL IV EMULSION 100 ML IV ONE (20:17)
[2020-03-10] VITALS (30 sets, daily range): BP systolic 97–134; BP diastolic 46–76
[2020-03-10] MEDS: CEFEPIME 1GM/NS 0.9% 50 ML 50 ML IV SCH (02:00)
[2020-03-10] MEDS: ALBUTEROL/IPRATROPIUM 3 ML NEB NEB SCH ×4 (02:40→19:25)
[2020-03-10] MEDS: DOXYCYCLINE 100MG/NS 100ML 100 ML IV SCH (03:30)
[2020-03-10 06:16] LABS: BASOPHILS % 0.4 % (0.0-1.0); EOSINOPHILS # (AUTO) 0.2 (0.0-0.4); EOSINOPHILS % 2.3 % (0.0-6.0); HEMATOCRIT 27.7 % (38.2-49.6); HEMOGLOBIN 8.5 g/dL (14.0-18.0); LYMPHOCYTES # (AUTO) 1.5 (1.0-3.2); LYMPHOCYTES % 16.6 % (18.0-39.1); MEAN CORPUSCULAR HEMOGLOBIN 30.4 pg (28-32); MEAN CORPUSCULAR HGB CONC 30.7 g/dL (31-35); MEAN CORPUSCULAR VOLUME 98.9 fL (81-99); MONOCYTES # (AUTO) 0.6 (0.2-0.8); MONOCYTES % 6.9 % (4.4-11.3); NEUTROPHILS # (AUTO) 6.6 (2.1-6.9); PLATELET COUNT 197 x10e3/uL (140-360); RED CELL DISTRIBUTION WIDTH 16.8 % (11.7-14.4)
[2020-03-10] MEDS: INSULIN LISPRO 100 UNIT/1 ML 3ML VIAL SQ SCH ×4 (06:22→21:00)
[2020-03-10 06:33] LABS: ALBUMIN 2.2 g/dL (3.5-5.0); ALBUMIN/GLOBULIN RATIO 0.4 (0.8-2.0); ANION GAP 15.1 mmol/L (8-16); CALCIUM 9.4 mg/dL (8.4-10.2); CREATININE, SERUM 1.47 mg/dL (0.72-1.25); POTASSIUM 4.1 mmol/L (3.5-5.1)
[2020-03-10] MEDS: LABETALOL HCL 200 MG TAB PEG SCH ×2 (09:30→22:00)
[2020-03-10] MEDS: POTASSIUM CHLORIDE 10MEQ EA PO SCH ×2 (09:42→17:47)
[2020-03-10] MEDS: TAMSULOSIN HCL 0.4 MG CAP PEG SCH (09:42)
[2020-03-10] MEDS: FINASTERIDE 5 MG TAB PEG SCH (09:42)
[2020-03-10] MEDS: AMLODIPINE BESYLATE 5 MG TAB PEG SCH (09:42)
[2020-03-10] MEDS: PANTOPRAZOLE SODIUM 40 MG SUSPDR.PKT PO SCH (09:42)
[2020-03-10] MEDS: FUROSEMIDE INJ 10 MG/ML 4 ML VIAL IV SCH (09:42)
[2020-03-10] MEDS: HEPARIN SOD (PORCINE) 5,000 UNIT/ML VIAL SC SCH ×2 (09:44→21:23)
[2020-03-10] MEDS: NYSTATIN 15 GM POWDER UD BTL TOP SCH (11:15)
[2020-03-10] MEDS: FLUCONAZOLE 200 MG/100 ML 100 ML IV SCH (11:55)
[2020-03-10] MEDS: VANCOMYCIN 500MG/NS 0.9% 100ML 100 ML IV SCH (12:18)
[2020-03-10 12:59] LABS: ABG HCO3 35 mmol/L (22-26); ABG PCO2 41 mmHg (35-45); ABG PH 7.53 (7.35-7.45); ABG PO2 50 mmHg (80-105); ABG TCO2 36
[2020-03-10] MEDS: ATORVASTATIN 40 MG TAB PEG SCH (21:23)
[2020-03-10] MEDS: OXYBUTYNIN CHLORIDE 5 MG TAB PO SCH (22:51)
[2020-03-11] VITALS (25 sets, daily range): BP systolic 80–159; BP diastolic 40–85
[2020-03-11] MEDS: VANCOMYCIN 500MG/NS 0.9% 100ML 100 ML IV SCH ×3 (00:11→23:29)
[2020-03-11] MEDS: INSULIN LISPRO 100 UNIT/1 ML 3ML VIAL SQ SCH ×4 (00:24→20:41)
[2020-03-11] MEDS: ALBUTEROL/IPRATROPIUM 3 ML NEB NEB SCH ×5 (01:02→23:50)
[2020-03-11 05:11] LABS: ALBUMIN 2.3 g/dL (3.5-5.0); ALBUMIN/GLOBULIN RATIO 0.5 (0.8-2.0); ANION GAP 16.3 mmol/L (8-16); CALCIUM 9.6 mg/dL (8.4-10.2); CREATININE, SERUM 1.35 mg/dL (0.72-1.25); POTASSIUM 4.3 mmol/L (3.5-5.1)
[2020-03-11] MEDS: OXYBUTYNIN CHLORIDE 5 MG TAB PO SCH ×3 (06:00→19:55)
[2020-03-11] MEDS: FUROSEMIDE INJ 10 MG/ML 4 ML VIAL IV SCH (07:52)
[2020-03-11] MEDS: PANTOPRAZOLE SODIUM 40 MG SUSPDR.PKT PO SCH (07:54)
[2020-03-11] MEDS: NYSTATIN 15 GM POWDER UD BTL TOP SCH (08:21)
[2020-03-11] MEDS: POTASSIUM CHLORIDE 10MEQ EA PO SCH ×2 (08:21→16:13)
[2020-03-11] MEDS: TAMSULOSIN HCL 0.4 MG CAP PEG SCH (08:21)
[2020-03-11] MEDS: HEPARIN SOD (PORCINE) 5,000 UNIT/ML VIAL SC SCH ×2 (08:21→19:58)
[2020-03-11] MEDS: AMLODIPINE BESYLATE 5 MG TAB PEG SCH (08:21)
[2020-03-11] MEDS: FINASTERIDE 5 MG TAB PEG SCH (08:21)
[2020-03-11] MEDS: FLUCONAZOLE 200 MG/100 ML 100 ML IV SCH (11:15)
[2020-03-11] MEDS: LABETALOL HCL 200 MG TAB PEG SCH ×2 (11:15→19:54)
[2020-03-11] MEDS: ATORVASTATIN 40 MG TAB PEG SCH (19:54)
[2020-03-12] VITALS (15 sets, daily range): BP systolic 111–134; BP diastolic 49–63
[2020-03-12 05:19] LABS: BASOPHILS % 0.5 % (0.0-1.0); EOSINOPHILS # (AUTO) 0.3 (0.0-0.4); HEMATOCRIT 27.9 % (38.2-49.6); HEMOGLOBIN 8.5 g/dL (14.0-18.0); LYMPHOCYTES # (AUTO) 1.5 (1.0-3.2); LYMPHOCYTES % 18.5 % (18.0-39.1); MEAN CORPUSCULAR HEMOGLOBIN 29.2 pg (28-32); MEAN CORPUSCULAR HGB CONC 30.5 g/dL (31-35); MEAN CORPUSCULAR VOLUME 95.9 fL (81-99); MONOCYTES # (AUTO) 0.7 (0.2-0.8); MONOCYTES % 7.9 % (4.4-11.3); NEUTROPHILS # (AUTO) 5.6 (2.1-6.9); NEUTROPHILS % 68.3 % (38.7-80.0); PLATELET COUNT 215 x10e3/uL (140-360); RED BLOOD COUNT 2.91 x10e6/uL (4.3-5.7); RED CELL DISTRIBUTION WIDTH 16.1 % (11.7-14.4)
[2020-03-12 05:37] LABS: ALBUMIN 2.2 g/dL (3.5-5.0); ALBUMIN/GLOBULIN RATIO 0.4 (0.8-2.0); ANION GAP 14.7 mmol/L (8-16); CALCIUM 9.3 mg/dL (8.4-10.2); CREATININE, SERUM 1.39 mg/dL (0.72-1.25); POTASSIUM 3.7 mmol/L (3.5-5.1)
[2020-03-12] MEDS: OXYBUTYNIN CHLORIDE 5 MG TAB PO SCH ×2 (06:08→13:26)
[2020-03-12] MEDS: ALBUTEROL/IPRATROPIUM 3 ML NEB NEB SCH (07:15)
[2020-03-12] MEDS: INSULIN LISPRO 100 UNIT/1 ML 3ML VIAL SQ SCH ×2 (07:24→11:14)
[2020-03-12] MEDS: PANTOPRAZOLE SODIUM 40 MG SUSPDR.PKT PO SCH (08:21)
[2020-03-12] MEDS: TAMSULOSIN HCL 0.4 MG CAP PEG SCH (08:21)
[2020-03-12] MEDS: POTASSIUM CHLORIDE 10MEQ EA PO SCH (08:21)
[2020-03-12] MEDS: NYSTATIN 15 GM POWDER UD BTL TOP SCH (08:21)
[2020-03-12] MEDS: AMLODIPINE BESYLATE 5 MG TAB PEG SCH (08:21)
[2020-03-12] MEDS: FINASTERIDE 5 MG TAB PEG SCH (08:21)
[2020-03-12] MEDS: LABETALOL HCL 200 MG TAB PEG SCH (08:22)
[2020-03-12] MEDS: HEPARIN SOD (PORCINE) 5,000 UNIT/ML VIAL SC SCH (08:22)
[2020-03-12] MEDS ORDERED: ALTEPLASE RECOMBINANT 2 MG/2 ML VIAL IV ONE (08:30)
[2020-03-12] MEDS: FUROSEMIDE INJ 10 MG/ML 4 ML VIAL IV SCH (08:32)
[2020-03-12] MEDS ORDERED: COLLAGENASE 5 GM TUBE TP SCH (09:00)
[2020-03-12] MEDS: FLUCONAZOLE 200 MG/100 ML 100 ML IV SCH (10:10)
[2020-03-12] MEDS: VANCOMYCIN 500MG/NS 0.9% 100ML 100 ML IV SCH (11:14)
[2020-03-12] MEDS ORDERED: DEXTROSE 50%-WA50 M1 IV (12:24)
[2020-03-12] MEDS ORDERED: VANCO 500500 MG/100 IV (12:24)
[2020-03-12] MEDS ORDERED: FUROSEMIDE10 MG/1 M1 IV (12:24)
[2020-03-12] MEDS ORDERED: OXYBUTYNIN CHLOR5 MG PO (12:24)
[2020-03-12] MEDS ORDERED: PROTONIX40 MG PO (12:24)
[2020-03-12] MEDS ORDERED: ONDANSETRON4 MG/2 M1 IV (12:24)
[2020-03-12] MEDS ORDERED: HYDRALAZIN20 MG/1 ML IV (12:24)
[2020-03-12] MEDS ORDERED: NYAMYC15 GM TOP (12:24)
[2020-03-12] MEDS ORDERED: HEPARIN SO5000 UNIT/ SC (12:24)
[2020-03-12] MEDS ORDERED: Albuterol/Ipratropium Nebulize NEB (12:24)
[2020-03-12] MEDS ORDERED: Insulin Lispro SQ (12:24)
[2020-03-12] MEDS ORDERED: FLUCONAZOL200 MG/101 IV (12:24)
[2020-03-12] MEDS ORDERED: Collagenase TP (12:24)
[2020-03-12] MEDS ORDERED: K DUR10 MEQ PO (12:24)
== END 2020-03-12 13:52 | DRG 871 ==
LOC: ER 05:52 → UNDOADMIN 08:28 → ERHOLD 08:28 → ICU 03-10 03:00
PROVIDERS: ADMIT Internal Medicine; ATTEND Internal Medicine
PROC: 0B21XFZ Change Tracheostomy Device in Trachea, External Approach (ICD-10-PCS; 2020-03-08)
PROC: 5A1945Z Respiratory Ventilation, 24-96 Consecutive Hours (ICD-10-PCS; principal; 2020-03-09)
DX: A41.9 Sepsis, unspecified organism (principal); J96.21 Acute and chronic respiratory failure with hypoxia; J69.0 Pneumonitis due to inhalation of food and vomit; I50.33 Acute on chronic diastolic (congestive) heart failure; J96.22 Acute and chronic respiratory failure with hypercapnia; N17.9 Acute kidney failure, unspecified; Z68.41 Body mass index [BMI] 40.0-44.9, adult; I48.20 Chronic atrial fibrillation, unspecified; E87.3 Alkalosis; B37.49 Other urogenital candidiasis; I13.0 Hypertensive heart and chronic kidney disease with heart failure and stage 1 through stage 4 chronic kidney disease, or unspecified chronic kidney disease; R65.20 Severe sepsis without septic shock; N18.9 Chronic kidney disease, unspecified; E11.22 Type 2 diabetes mellitus with diabetic chronic kidney disease; E87.5 Hyperkalemia; N40.0 Benign prostatic hyperplasia without lower urinary tract symptoms; E66.01 Morbid (severe) obesity due to excess calories; Z20.822 Contact with and (suspected) exposure to COVID-19; I69.391 Dysphagia following cerebral infarction; R13.10 Dysphagia, unspecified; B95.8 Unspecified staphylococcus as the cause of diseases classified elsewhere; Z87.440 Personal history of urinary (tract) infections; Z93.1 Gastrostomy status; L89.150 Pressure ulcer of sacral region, unstageable
CPT/HCPCS: 36415; 36600; 71045; 71250; 80053; 81001; 82550; 82553; 82805; 82948; 83605; 83880; 84484; 85025; 87040; 87070; 87071; 87086; 87186; 87205; 93306; 93971; 94002; 94003; 94640; 99251; 99285; J0692; J0696; J1450; J1644; J1940; J2060; J2997; J3370; U0002